=== PATIENT | female | born 1950 | race Caucasian/White ===

== ENCOUNTER 2021-02-24 14:06 | Outpatient (REF) | payer MEDICARE, SELFPAY ==
--- NOTE | ~2021-02-24 | XR_ITS ---
EXAMINATION: XR CHEST CLINICAL INFORMATION: Shortness of breath. COMPARISON: None TECHNIQUE: 2 views of the chest were obtained. FINDINGS: The lungs are well-expanded and clear. The heart size and pulmonary vascularity is normal. No gross bony abnormality seen. XR/XR chest 2V IMPRESSION: Unremarkable chest exam.
== END 2021-02-24 14:07 | disposition home or self-care (01) ==
LOC: HO.HMGCX 14:06
PROVIDERS: PCP Pediatrics; Visit Provider Hospitalist
DX: R06.02 Shortness of breath (principal)
CPT/HCPCS: 71046

== ENCOUNTER → 2021-11-12 08:54 | Outpatient (BNVA) | payer MEDICARE, SELFPAY | PROVIDERS: PCP Pediatrics; Visit Provider Internal Medicine Rheumatology | DX: M35.4 Diffuse (eosinophilic) fasciitis (principal); D72.18 Eosinophilia in diseases classified elsewhere; Z85.118 Personal history of other malignant neoplasm of bronchus and lung; Z79.899 Other long term (current) drug therapy | CPT/HCPCS: 99212 ==

== ENCOUNTER 2022-03-11 12:44 | Outpatient (REF) | payer MEDICARE, SELFPAY ==
[2022-03-11 13:46] LABS: MANUAL DIFF FLAG NO
[2022-03-11 13:52] LABS: Basophils Percent Auto 0.8 % (0-2); Eosinophils Absolute Auto 0.1 X10*3/uL (0.0-0.4); Eosinophils Percent Auto 2.1 % (0-4); Hematocrit 38.4 % (37.0-47.0); Hemoglobin 12.9 g/dl (12.0-16.0); Imm Gran Abs Auto 0.03 X10*3/uL (0.00-0.03); Imm Gran Pct Auto 0.6 % (0.0-0.4); Lymphocytes Absolute Auto 1.3 X10*3/uL (1.2-4.9); Lymphocytes Percent Auto 23.9 % (20-40); Mean Corpuscular HGB Conc 33.6 g/dl (31.0-35.0); Mean Corpuscular Hemoglobin 28.6 pg (27.0-33.0); Mean Corpuscular Volume 85.1 fL (80.0-98.0); Mean Platelet Volume 8.5 fL (9.4-12.3); Monocytes Absolute Auto 0.4 X10*3/uL (0.1-1.2); Monocytes Percent Auto 7.9 % (2-11); Neutrophils Absolute Auto 3.5 x10*3/uL (2.0-8.3); Neutrophils Percent Auto 64.7 % (45-73); Platelet Count 188 X10*3/uL (160-400); Red Blood Count 4.51 X10*6/uL (4.20-5.50); Red Cell Distribution Width 13.3 % (11.0-16.0); White Blood Count 5.3 X10*3/uL (4.8-10.8)
[2022-03-11 14:22] LABS: C Reactive Protein 0.11 mg/dL (< or = 0.50)
[2022-03-11 14:51] LABS: Erythrocyte Sedimentation Rate 7 MM/HR (0-20)
== END 2022-03-11 12:45 | disposition home or self-care (01) ==
LOC: HO.HMGCLDS 12:44
PROVIDERS: Visit Provider Internal Medicine Rheumatology
DX: M35.4 Diffuse (eosinophilic) fasciitis (principal); D72.18 Eosinophilia in diseases classified elsewhere; Z79.899 Other long term (current) drug therapy
CPT/HCPCS: 36415; 85025; 85652; 86140

== ENCOUNTER → 2022-03-16 08:42 | Outpatient (BNVA) | payer MEDICARE, SELFPAY | PROVIDERS: PCP Pediatrics; Visit Provider Internal Medicine Rheumatology | DX: M35.4 Diffuse (eosinophilic) fasciitis (principal); D72.18 Eosinophilia in diseases classified elsewhere; G62.9 Polyneuropathy, unspecified; Z79.899 Other long term (current) drug therapy | CPT/HCPCS: 99212 ==

== ENCOUNTER 2022-04-08 09:13 | Outpatient (REF) | payer MEDICARE, SELFPAY ==
--- NOTE | ~2022-04-08 | XR_ITS ---
EXAMINATION: XR RIBS, BILATERAL CLINICAL INFORMATION: Unspecified fall now with pain bilateral COMPARISON: None TECHNIQUE: 3 views of the bilateral ribs were obtained. FINDINGS: There is atelectasis at the left lung base. Lungs otherwise are clear. There is no pneumothorax thorax. A marker is placed over the inferior lateral right ribs. No underlying fracture. Visualized right and left ribs are intact. XR/XR ribs BI min 4V w CXR1V IMPRESSION: No acute osseous abnormality. IMPRESSION: Unremarkable examination.
== END 2022-04-08 09:14 | disposition home or self-care (01) ==
LOC: HO.HMGCX 09:13
PROVIDERS: Visit Provider Physician Assistant
DX: R07.89 Other chest pain (principal); Z91.81 History of falling
CPT/HCPCS: 71111

== ENCOUNTER 2022-05-02 07:15 | Emergency (ER) | payer MEDICARE, SELFPAY ==
--- NOTE | ~2022-05-02 | CT_ITS ---
EXAMINATION: CT HEAD WITHOUT CONTRAST CLINICAL INFORMATION: New onset headache. History of lung cancer. COMPARISON: None TECHNIQUE: Contiguous axial imaging was performed from the skull base to vertex without intravenous administration of contrast. This CT examination was performed using dose optimization techniques as appropriate, variously including the following: *Automated exposure control *Adjustment of mA and/or kV according to patient size (this includes techniques or standardized protocols for targeted exams where dose is matched to indication/reason for exam; i.e. extremities or head) *Use of iterative reconstruction technique DLP: 622 mGy-cm FINDINGS: There is no evidence of acute intracranial hemorrhage or territorial infarction. No abnormal mass effect or midline shift is appreciated. Wallace-white differentiation is well preserved. No extra-axial fluid collections. The ventricular system and cortical sulci are mildly prominent, consistent with age-appropriate volume loss. There are subtle areas of low density in the periventricular and subcortical white matter, most consistent with sequelae of microvascular ischemic change. Mild basal ganglia calcifications. The osseous structures and soft tissues are normal. There are calcifications of the cavernous internal carotid arteries. The visualized paranasal sinuses and mastoid air cells are well aerated. CT/CT head/brain wo con IMPRESSION: Chronic microvascular ischemic changes with no CT evidence of acute intracranial abnormality. IMPRESSION: No acute intracranial pathology.
[2022-05-02 07:49] VITALS: BP 130/70; PULSE 81; RESP 20; TEMP 36; O2SAT 98; BMI 25.4
--- NOTE | 2022-05-02 09:24 | ED_ITS ---
HPI - General Adult General Chief complaint: General Medical Stated complaint: Headache Time Seen by Provider: 05/02/22 09:06 Source: patient Mode of arrival: ambulatory Limitations: no limitations History of Present Illness HPI narrative: Patient presents to the emergency department for evaluation of head pain. She states last night while sitting and watching television she developed a sharp pain to the right side of her head. Is intermittent, lasting sometimes a few seconds and then self resolving. She does additionally report tinnitus as a chronic issue since her 20s but she does feel that over the past few months it has been worse. Denies any vision changes. Denies any head injury. Denies associated dizziness or lightheadedness, or nausea/vomiting. No neck pain or neck stiffness. She does have a history of adenocarcinoma of the lung, stating she has been in remission since 2017. Denies any anticoagulants. She does additionally report intermittent shortness of breath with deep breathing after a fall about 4 weeks ago, she was evaluated and had imaging at that time and states that she was advised her pain is due to injury of the chest wall. She also has a resolving hematoma and bruising to the right lower leg from this fall, no redness, warmth, numbness, tingling, or swelling. Related Data Home Medications Medication Instructions Recorded Confirmed sertraline 50 mg tablet 50 mg PO DAILY 02/24/21 03/16/22 simvastatin 10 mg tablet 10 mg PO BEDTIME 02/24/21 03/16/22 clonazepam 0.5 mg tablet 0.5 mg PO TID PRN anxiety 11/12/21 03/16/22 pantoprazole 40 mg tablet,delayed 40 mg PO BID 11/12/21 03/16/22 release Previous Rx's Medication Instructions Recorded gabapentin 400 mg capsule 400 mg PO BEDTIME #30 caps 03/16/22 lidocaine 4 % topical patch 1 patch topical DAILY PRN pain #15 04/08/22 (AsperFlex (lidocaine)) ea acetaminophen 300 mg-codeine 15 mg 1 tab PO BID PRN pain #10 tabs 04/13/22 tablet Allergies Allergy/AdvReac Type Severity Reaction Status Date / Time morphine [MORPHINE] Allergy Unknown HIVES, rash Unverified 04/13/22 10:10 From MINOCIN Allergy Unknown DIARRHEA Uncoded 04/13/22 10:10 Review of Systems Review of Systems: Constitutional: No weight loss. No fever. No chills. No weakness. No fatigue. Eye: No swelling. No redness. ENT: No sore throat. No rhinorrhea. No nasal congestion. No difficulty swallowing. Skin: No rash. No itching. Cardiovascular: No chest pain. No chest pressure. No palpitations. No pedal edema. Respiratory: Positive intermittent shortness of breath. Positive chronic coug h. No sputum production. Gastrointestinal: No anorexia. No nausea. No vomiting. No diarrhea. No abdominal pain. No blood in stool. Genitourinary: No burning micturition. No urinary frequency. No incontinence. Neurologic: Positive headache. No dizziness. No pre-syncope/ syncope. No unilateral weakness. No ataxia. No numbness. No tingling. No change in bowel or bladder control. Musculoskeletal: No muscle pain. No back pain. No joint pain. No stiffness. Hematologic: No bleeding. No bruising. Lymphatics: No enlarged lymph nodes. Psychiatric:No depression. No anxiety. Endocrine: No polyuria. No polydipsia. Yes all other systems are reviewed and are negative PMFSH Past Medical History Attestation statement: The following information was validated with the patient. Source: old records reviewed Medical History Eosinophilic fasciitis History of adenocarcinoma of lung Hyperlipidemia Irritable bowel syndrome Long-term use of immunosuppressant medication Osteopenia Social History Social History Household Members: Spouse Housing: [facility] Are you a primary mall plant caretaker to a significant other at home: No Do you presently have visiting nurse or other home services: No Alcohol intake: never Patient Tobacco Use Status: Former Tobacco user Years Smoked: quit 2006 e-Cigarette/Vaping Use: Never Used Advance Directives: Yes Advance Directives Information Provided: Yes Advance Directives on File: No service: No Current occupational status: retired Physical Exam ED Vital Signs: Vital Signs - 24 hr 05/02/22 07:49 Temperature 96.8 F Pulse Rate 81 Respiratory Rate 20 Blood Pressure 130/70 Pulse Oximetry 98 Oxygen Delivery Method Room Air BMI result Body Mass Index 25.4 Vital signs have been reviewed as normal and appeared to be correct. Blood pressure normal.? Heart rate normal.? Respiration rate normal. Temperature normal.? Oxygen saturation normal. Appearance: Alert.?Oriented to person, place and time. No acute distress.?Normal affect. Eyes: Pupils equal, round and reactive to light.? EOMI. No nystagmus. ENT: Pharynx normal.??TM normal bilaterally Neck: Normal inspection.? Neck supple.?? CVS: Heart sounds normal. Normal heart rate and rhythm.? Pulses normal.?? Respiratory: No respiratory distress.? Lung sounds clear to auscultation bilaterally?? Abdomen: Soft and non-tender. Normoactive bowel sounds. No pulsatile mass.?? Skin: Skin warm and dry.? Normal skin color.? Extremities: No lower extremity edema.? No calf ttp? Neuro: Moves all extremities spontaneously. Sensation intact bilaterally. CN II- XII intact. No focal neuro deficits. Ambulates with normal steady gait. NIH Stroke Scale Time: 09:15 Level of Consciousness: Alert Level of Consciousness Questions: Answers both questions correctly Level of Consciousness Commands: Performs both tasks correctly Best Gaze: Normal Visual: No visual loss Facial Palsy: Normal Motor Arm (Right): No drift Motor Arm (Left): No drift Motor Leg (Right): No drift Motor Leg (Left): No drift Limb Ataxia: Absent Sensory: Normal Best Language: No aphasia Dysarthia: Normal Extinction and Inattention: No abnormality Score: 0 Course Course Course Narrative: Patient is a 71-year-old female with a past medical history of peripheral neuropathy, GERD, IBS, adenocarcinoma the lung with remission since 2017, long-term immunosuppressant, eosinophilic fasciitis who presents emergency department today for evaluation of sudden onset right parietal head pain. No prior history of headaches. No red flag symptoms. However, given her age, history of cancer, and no significant prior headache history will obtain CT of t he head to exclude ICH/SAH/mass/intracranial pathology as a source for the pain in addition to basic labs, at this time denies the presence of pain, therefore will not administer medications currently. She did take Tylenol yesterday evening with some relief. Reevaluation(s) Reevaluation #1: CBC and CMP are overall unremarkable. CT of the head shows chronic microvascular ischemic changes but no acute intracranial abnormalities. Discussed these findings with patient. Advised Tylenol as needed for headache. Reviewed worrisome signs and symptoms to return back to the emergency department for. Advised outpatient follow-up with her primary care provider as needed. Patient verbalized understanding, was discharged home in stable condition from the emergency department, she was able to ambulate with steady gait. Time: 10:33 Medical Decision Making Medical Records Medical records reviewed: Yes I reviewed the patient's medical records. Lab Data Lab results reviewed: Yes I reviewed the patient's lab results. Result diagrams: 05/02/22 10:01 05/02/22 10:01 Labs: Lab Results 05/02/22 05/02/22 Range/Units 10: 10:01 WBC 5.3 (4.8-10.8) X10*3/uL RBC 4.71 (4.20-5.50) X10*6/uL Hgb 13.4 (12.0-16.0) g/dl Hct 39.0 (37.0-47.0) % MCV 82.8 (80.0-98.0) fL MCH 28.5 (27.0-33.0) pg MCHC 34.4 (31.0-35.0) g/dl RDW 13.0 (11.0-16.0) % Plt Count 158 L (160-400) X10*3/uL MPV 7.7 L (9.4-12.3) fL Immature Gran % (Auto) 0.6 H (0.0-0.4) % Neut % (Auto) 68.6 (45-73) % Lymph % (Auto) 22.0 (20-40) % Hickman % (Auto) 6.4 (2-11) % Eos % (Auto) 1.5 (0-4) % Baso % (Auto) 0.9 (0-2) % Lymph # (Auto) 1.2 (1.2-4.9) X10*3/uL Hickman # (Auto) 0.3 (0.1-1.2) X10*3/uL Eos # (Auto) 0.1 (0.0-0.4) X10*3/uL Baso # (Auto) 0.1 (0.0-0.2) X10*3/uL Abs Immat Gran (auto) 0.03 (0.00-0.03) X10*3/uL Absolute Neuts (auto) 3.6 (2.0-8.3) x10*3/uL Absolute Nucleated RBC 0.000 (0.0-0.012) X10*3/uL Nucleated RBC % (auto) 0.0 (0.0-0.2) /100WBC Sodium 143 (135-145) mmol/L Potassium 4.9 (3.3-5.1) mmol/L Chloride 107 (96-108) mmol/L Carbon Dioxide 27 (22-29) mmol/L Anion Gap 14 (12-20) BUN 22 H (9-16) mg/dL Creatinine 0.81 (0.5-1.4) mg/dL Estim Creat Clear Calc 63.2 Estimated GFR > 60 Random Glucose 104 (60-115) mg/dL Calcium 9.5 (8.4-10.2) mg/dL Magnesium 2.1 (1.6-2.6) mg/dL Total Bilirubin 1.1 H (0.0-1.0) mg/dL AST 21 (5-31) U/L ALT 16 (0-31) U/L Alkaline Phosphatase 67 (39-117) U/L Total Protein 6.8 (6.5-8.0) g/dL Albumin 4.5 (3.5-5.0) g/dL Imaging Data CT scan - head: Radiologist's impression: CT/CT head/brain wo con IMPRESSION: Chronic microvascular ischemic changes with no CT evidence of acute intracranial abnormality. ? ? IMPRESSION: No acute intracranial pathology. Discharge Plan Discharge Clinical Impression: Headache Patient Disposition: Home, Self-Care Instructions: General Headache (ED) Additional Instructions: As we discussed your blood work was overall normal, and the CT of your head was normal. Use Tylenol as needed for headache. Please contact your primary care provider to arrange for follow-up. Return to the emergency department any new or worsening symptoms or concerns Prescriptions: No Action simvastatin 10 mg tablet 10 mg PO BEDTIME sertraline 50 mg tablet 50 mg PO DAILY lidocaine [AsperFlex (lidocaine)] 4 % adhesive patch,medicated 1 patch topical DAILY PRN (Reason: pain) Qty: 15 0RF acetaminophen-codeine 300-15 mg tablet 1 tab PO BID PRN (Reason: pain) Qty: 10 0RF gabapentin 400 mg capsule 400 mg PO BEDTIME Qty: 30 3RF pantoprazole 40 mg tablet,delayed release (DR/EC) 40 mg PO BID clonazepam 0.5 mg tablet 0.5 mg PO TID PRN (Reason: anxiety) Interventions: ED Discharge Assessment Last Done: 05/02/22 10:58 Discharge Date/Time: 05/02/22 11:04
[2022-05-02 10:05] LABS: MANUAL DIFF FLAG NO
[2022-05-02 10:06] LABS: Basophils Absolute Auto 0.1 X10*3/uL (0.0-0.2); Basophils Percent Auto 0.9 % (0-2); Eosinophils Absolute Auto 0.1 X10*3/uL (0.0-0.4); Eosinophils Percent Auto 1.5 % (0-4); Hemoglobin 13.4 g/dl (12.0-16.0); Imm Gran Abs Auto 0.03 X10*3/uL (0.00-0.03); Imm Gran Pct Auto 0.6 % (0.0-0.4); Lymphocytes Absolute Auto 1.2 X10*3/uL (1.2-4.9); Mean Corpuscular HGB Conc 34.4 g/dl (31.0-35.0); Mean Corpuscular Hemoglobin 28.5 pg (27.0-33.0); Mean Corpuscular Volume 82.8 fL (80.0-98.0); Mean Platelet Volume 7.7 fL (9.4-12.3); Monocytes Absolute Auto 0.3 X10*3/uL (0.1-1.2); Monocytes Percent Auto 6.4 % (2-11); Neutrophils Absolute Auto 3.6 x10*3/uL (2.0-8.3); Neutrophils Percent Auto 68.6 % (45-73); Platelet Count 158 X10*3/uL (160-400); Red Blood Count 4.71 X10*6/uL (4.20-5.50); White Blood Count 5.3 X10*3/uL (4.8-10.8)
[2022-05-02 10:24] LABS: Alanine Aminotransferase 16 U/L (0-31); Albumin Level 4.5 g/dL (3.5-5.0); Alkaline Phosphatase 67 U/L (39-117); Anion Gap 14 (12-20); Aspartate Amino Transferase 21 U/L (5-31); Bilirubin Total 1.1 mg/dL (0.0-1.0); Blood Urea Nitrogen 22 mg/dL (9-16); Calcium 9.5 mg/dL (8.4-10.2); Carbon Dioxide 27 mmol/L (22-29); Chloride 107 mmol/L (96-108); Creatinine Clr Calc Pharmacy 63.2; Estimated Glomerular Filt Rate > 60; Glucose Random 104 mg/dL (60-115); Magnesium 2.1 mg/dL (1.6-2.6); Potassium 4.9 mmol/L (3.3-5.1); Sodium 143 mmol/L (135-145); Total Protein 6.8 g/dL (6.5-8.0)
== END 2022-05-02 11:04 | disposition home or self-care (01) ==
PROVIDERS: Nurse Practitioner Family; Emergency Provider Emergency Medicine; PCP Pediatrics
DX: R51.9 Headache, unspecified (principal)
CPT/HCPCS: 36415; 70450; 80053; 83735; 85025; 99283; 99284

== ENCOUNTER 2022-05-09 13:06 | Outpatient (REF) | payer MEDICARE, SELFPAY ==
--- NOTE | ~2022-05-09 | XR_ITS ---
EXAMINATION: XR TIBIA AND FIBULA, RIGHT CLINICAL INFORMATION: Right lower leg contusion. COMPARISON: None TECHNIQUE: AP and lateral views of the right tibia and fibula were obtained. FINDINGS: The bones and soft tissues are normal. No fracture. No osseous lesions. XR/XR tibia fibula RT 2V IMPRESSION: Unremarkable right tibia and fibula.
== END 2022-05-09 13:07 | disposition home or self-care (01) ==
LOC: HO.HMGCX 13:06
PROVIDERS: PCP Pediatrics; Visit Provider Nurse Practitioner Acute Care
DX: S80.11XA Contusion of right lower leg, initial encounter (principal); X58.XXXA Exposure to other specified factors, initial encounter; Y93.9 Activity, unspecified; Y92.9 Unspecified place or not applicable; Y99.9 Unspecified external cause status
CPT/HCPCS: 73590

== ENCOUNTER 2022-06-17 11:09 | Outpatient (REF) | payer MEDICARE, SELFPAY ==
[2022-06-17 13:51] LABS: MANUAL DIFF FLAG NO
[2022-06-17 14:20] LABS: Basophils Absolute Auto 0.1 X10*3/uL (0.0-0.2); Eosinophils Absolute Auto 0.1 X10*3/uL (0.0-0.4); Eosinophils Percent Auto 1.9 % (0-4); Hemoglobin 12.7 g/dl (12.0-16.0); Imm Gran Abs Auto 0.03 X10*3/uL (0.00-0.03); Imm Gran Pct Auto 0.6 % (0.0-0.4); Lymphocytes Absolute Auto 1.5 X10*3/uL (1.2-4.9); Lymphocytes Percent Auto 30.5 % (20-40); Mean Corpuscular HGB Conc 34.3 g/dl (31.0-35.0); Mean Corpuscular Hemoglobin 28.9 pg (27.0-33.0); Mean Corpuscular Volume 84.1 fL (80.0-98.0); Mean Platelet Volume 8.6 fL (9.4-12.3); Monocytes Absolute Auto 0.4 X10*3/uL (0.1-1.2); Neutrophils Absolute Auto 2.7 x10*3/uL (2.0-8.3); Platelet Count 175 X10*3/uL (160-400); Red Cell Distribution Width 12.8 % (11.0-16.0); White Blood Count 4.8 X10*3/uL (4.8-10.8)
[2022-06-17 14:54] LABS: C Reactive Protein 0.22 mg/dL (< or = 0.50)
[2022-06-17 15:00] LABS: Erythrocyte Sedimentation Rate 7 MM/HR (0-20)
== END 2022-06-17 11:10 | disposition home or self-care (01) ==
LOC: HO.10HDL 11:09
PROVIDERS: Visit Provider Internal Medicine Rheumatology
DX: M35.4 Diffuse (eosinophilic) fasciitis (principal); D72.18 Eosinophilia in diseases classified elsewhere; Z85.118 Personal history of other malignant neoplasm of bronchus and lung; Z79.899 Other long term (current) drug therapy
CPT/HCPCS: 36415; 85025; 85652; 86140; 99212

== ENCOUNTER → 2022-10-19 09:33 | Outpatient (BNVA) | payer MEDICARE, SELFPAY | PROVIDERS: PCP Pediatrics; Visit Provider Internal Medicine Rheumatology | DX: M35.4 Diffuse (eosinophilic) fasciitis (principal); D72.18 Eosinophilia in diseases classified elsewhere; Z85.118 Personal history of other malignant neoplasm of bronchus and lung | CPT/HCPCS: 36415; 85025; 85652; 86140; 99212 ==

== ENCOUNTER 2022-10-19 10:23 | Outpatient (REF) | payer MEDICARE, SELFPAY ==
[2022-10-19 13:22] LABS: MANUAL DIFF FLAG NO
[2022-10-19 13:28] LABS: Basophils Percent Auto 0.9 % (0-2); Eosinophils Absolute Auto 0.1 X10*3/uL (0.0-0.4); Eosinophils Percent Auto 2.6 % (0-4); Hematocrit 36.8 % (37.0-47.0); Hemoglobin 12.6 g/dl (12.0-16.0); Imm Gran Abs Auto 0.04 X10*3/uL (0.00-0.03); Imm Gran Pct Auto 0.9 % (0.0-0.4); Lymphocytes Absolute Auto 1.2 X10*3/uL (1.2-4.9); Mean Corpuscular HGB Conc 34.2 g/dl (31.0-35.0); Mean Corpuscular Hemoglobin 28.6 pg (27.0-33.0); Mean Corpuscular Volume 83.6 fL (80.0-98.0); Mean Platelet Volume 8.6 fL (9.4-12.3); Monocytes Absolute Auto 0.3 X10*3/uL (0.1-1.2); Monocytes Percent Auto 7.9 % (2-11); Neutrophils Absolute Auto 2.5 x10*3/uL (2.0-8.3); Neutrophils Percent Auto 58.7 % (45-73); Platelet Count 169 X10*3/uL (160-400); White Blood Count 4.3 X10*3/uL (4.8-10.8)
[2022-10-19 13:38] LABS: C Reactive Protein 0.37 mg/dL (< or = 0.50)
[2022-10-19 14:04] LABS: Erythrocyte Sedimentation Rate 8 MM/HR (0-20)
== END 2022-10-19 10:24 | disposition home or self-care (01) ==
LOC: HO.10HDL 10:23
PROVIDERS: Visit Provider Internal Medicine Rheumatology
DX: Z13.89 Encounter for screening for other disorder (principal)
CPT/HCPCS: 36415; 85025; 85652; 86140

== ENCOUNTER 2023-04-13 09:28 | Outpatient (AMB) | payer MEDICARE, SELFPAY ==
--- NOTE | 2023-04-13 09:31 | AM.OFFWIN_ITS ---
Intake Vital Signs 04/13/23 09:37 BP 140/80 H Blood Pressure Location Lt brachial Position Sitting Pulse 88 Pulse Source Pulse Oximeter Temp 97.5 F Temp Source Temporal Artery Scan Pulse Oximetry (%) 98 Oxygen Delivery Method Room Air Intake Visit Reasons: EP, Pain on top of head Intake Note: Patient here because she has had a headache/pain right above hair line that has been present since wednesday, she states it feels like she was hit on the head. no injuries, no redness, no bumps. Patient Tobacco Use Status: Former Tobacco user Allergies morphine [MORPHINE] Allergy (Unknown, Unverified 04/13/23 09:36) HIVES, rash From MINOCIN Allergy (Unknown, Uncoded 04/13/23 09:36) DIARRHEA Do you need a note to return to daycare/school/sports/work: No HPI HPI Comments History of Present Illness Details 72-year-old female with past medical history of eosinophilic fasciitis, history of cancer, no longer on a immuno therapeutics, presents with headache that started at the top of her head that worsens with palpation. She does not report any rashes, changes in vision, or loss of balance. She was advised by her primary care to present to a hospital or urgent care for evaluation. [facility] Medical History Eosinophilic fasciitis History of adenocarcinoma of lung Hyperlipidemia Irritable bowel syndrome Long-term use of immunosuppressant medication Osteopenia Surgical History H/O: hysterectomy Hx of tonsillectomy Social History Household Members: Spouse Housing: Condominium Are you a primary anesthesiologist and critical care to a significant other at home: No Do you presently have visiting nurse or other home services: No Alcohol intake: never Patient Tobacco Use Status: Former Tobacco user Years Smoked: quit 2006 e-Cigarette/Vaping Use: Never Used service: No Current occupational status: retired Review of Systems Const Details: Constitutional: No Fever, No Chills positive frontal headache Cardiovascular: No Chest Pain, No SOB Respiratory: No Cough, No Dyspnea Gastrointestinal: No Nausea, No Vomiting, No Diarrhea, No abdominal Pain Genitourinary: No Dysuria, No Hematuria Musculoskeletal: No joint pain, No Myalgias, No Joint Swelling Skin: No Skin lacerations, No rash Neuro: No Weakness, No Numbness, No Paresthesias, No Loss of Consciousness, No Dizziness, positive frontal headache All systems reviewed & are unremarkable except as noted in HPI and below Physical Exam Vital Signs: Last Vital Signs Temp 97.5 F 04/13/23 09:37 Pulse 88 04/13/23 09:37 BP 140/80 H 04/13/23 09:37 Pulse Ox 98 04/13/23 09:37 Oxygen Delivery Method Room Air 04/13/23 09:37 Appearance: Alert. Oriented X3. No acute distress. Eyes: Pupils equal, round and reactive to light. ENT: Pharynx normal. Neck: Normal inspection. Neck supple. CVS: Normal heart rate and rhythm. Pulses normal. Respiratory: No respiratory distress. Breath sounds normal. Skin: Skin warm and dry. Normal skin color. Normal skin turgor. Extremities: No lower extremity edema. Gait well balanced well coordinated. Neuro: No motor deficit. No sensory deficit. Cranial nerves 2-12 intact Assessment & Plan Assessment & Plan (1) Eosinophilic fasciitis: Comment: Onset 05/24. Initial presentation with PMR picture. Probably due to nivolumab(a checkpoint inhibitor) Fasciitis seen on MRI 06/23 High dose prednisone 06/23 Mycophenolate added 07/24 - stopped in 09/24 due to diarrhea Myfortic in place of CellCept 09/24 Prednisone slowly tapered off: September: Mycophenolate was tapered and stopped Code(s): M35.4 - Diffuse (eosinophilic) fasciitis; D72.18 - Eosinophilia in diseases classified elsewhere (2) History of adenocarcinoma of lung: Comment: Diagnosed on lung biopsy. Treated initially with carboplatin, Taxol, Avastin for 4 cycles Alimta X 5 months Optivo for 19 months -stopped due to eosinophilia/PMR - eventually eosinophilic fasciitis Code(s): Z85.118 - Personal history of other malignant neoplasm of bronchus and lung (3) Headache: Code(s): R51.9 - Headache, unspecified Plan 72-year-old female with past medical history of eosinophilic fasciitis, history of lung cancer no longer on immunotherapy or chemotherapy, hyperlipidemia, and peripheral neuropathy presents with a headache that started on the top of her head on Wednesday. She states this pain is pretty severe, and is not associated with loss of balance, cauda equina, changes in vision, dizziness, light headedness, or weakness. She does report tinnitus which she has had for quite some time, and states the pain on her head gets worse with pressure. She did not have any open wounds or rashes, low likelihood of zoster or trigeminal neuralgia at this time. Considering patient's significant past medical history of malignancy as well as eosinophilic fasciitis, I feel that this patient should require CT scan of the head as this could possibly be metastatic disease or exacerbation of eosinophilia. Patient's Pearson coma Scale is 15, NIH stroke scale is 0. Cranial nerves 2-12 intact. Gait is well balanced well coordinated. Brisk capillary refill, equal pulses bilaterally. Patient does have an appointment with Dr. Vivas and Rheumatology at [facility] on Wednesday. I did call their office to let them know that I was concerned about this patient, I discussed my plan for outpatient CT scan of the head, and they have agreed to follow-up. Patient does understand that she must follow-up with her primary care physician and or Rheumatology for her CT scan results. I did discuss of prednisone burst therapy with this patient, she does not want that medication. She will continue using Tylenol and Motrin to help alleviate her symptoms. She will also discuss her symptoms with her malt house loader on Wednesday. Patient verbalized understanding of and agreed to plan of care discharge home. Verbalized understanding of signs and symptoms indicating need for emergent intervention. Orders: Orders CT head/brain wo IV con Today D72.18 - Eosinophilia in diseases classified elsewhere, M35.4 - Diffuse (eosinophilic) fasciitis, R51.9 - Headache, unspecified, Z85.118 - Personal history of other malignant neoplasm of bronchus and lung Patient Instructions: You were evaluated for sudden onset of severe headaches without neurological findings. Considering your significant past medical history of eosinophilic fasciitis and history of cancer, please present to [facility] for a CT scan of the head as an outpatient. I discussed this plan with Dr. Vivass office, they will follow up on your CT scan results with you on Wednesday. Alternate Tylenol 650 mg every 6 hours and Motrin 600 mg every 6 hours as needed for pain management. Consider taking these medications 3 hours apart so you have pain and fever management every 3 hours. Write down what time you take these medications to prevent accidental overdose. Motrin is the same medication as Advil and ibuprofen. Tylenol is the same medication as acetaminophen. Thank you for choosing this urgent care for evaluation. Please follow-up with primary care physician as needed. Return to the emergency department for any new, concerning, or worsening symptoms. Coding Level of Care Code Est Pt Level 3 (79348) Diagnoses Eosinophilic fasciitis M35.4; D72.18 History of adenocarcinoma of lung Z85.118 Headache R51.9
[2023-04-13 09:37] VITALS: BP 140/80; PULSE 88; TEMP 36.4; O2SAT 98
== END 2023-04-13 11:37 | disposition home or self-care (01) ==
PROVIDERS: PCP Pediatrics; Visit Provider Nurse Practitioner Family
DX: M35.4 Diffuse (eosinophilic) fasciitis (principal); D72.18 Eosinophilia in diseases classified elsewhere; Z85.118 Personal history of other malignant neoplasm of bronchus and lung; R51.9 Headache, unspecified
CPT/HCPCS: 99213

== ENCOUNTER 2023-04-13 13:50 | Outpatient (REF) | payer MEDICARE, SELFPAY ==
--- NOTE | ~2023-04-13 | CT_ITS ---
EXAMINATION: CT HEAD WITHOUT CONTRAST CLINICAL INFORMATION: Headache COMPARISON: 05/02/[address] TECHNIQUE: Contiguous axial imaging was performed from the skull base to vertex without intravenous administration of contrast. This CT examination was performed using dose optimization techniques as appropriate, variously including the following: *Automated exposure control *Adjustment of mA and/or kV according to patient size (this includes techniques or standardized protocols for targeted exams where dose is matched to indication/reason for exam; i.e. extremities or head) *Use of iterative reconstruction technique DLP: 708.00 mGy-cm FINDINGS: CT examination shows the ventricles and sulci are normal in size and configuration for age. Wallace-white differentiation is maintained. No acute hemorrhage, mass effect or shift is evident. In the posterior fossa the brainstem, cerebellum and fourth ventricle are unremarkable. The orbits, calvarium, paranasal sinuses and mastoid air cells are unremarkable. CT/CT head/brain wo IV con IMPRESSION: No acute intracranial pathology.
== END 2023-04-13 13:51 | disposition home or self-care (01) ==
LOC: HO.CT 13:50
PROVIDERS: PCP Pediatrics; Visit Provider Nurse Practitioner Family
DX: R51.9 Headache, unspecified (principal); M35.4 Diffuse (eosinophilic) fasciitis; D72.18 Eosinophilia in diseases classified elsewhere; Z85.118 Personal history of other malignant neoplasm of bronchus and lung
CPT/HCPCS: 70450

== ENCOUNTER 2023-04-19 09:52 | Outpatient (AMB) | payer MEDICARE, SELFPAY ==
--- NOTE | 2023-04-19 09:54 | A.OFFVIS_ITS ---
Intake Vital Signs 04/19/23 10:01 Height 5 ft 5 in Weight 151 lb 10.848 oz BMI 25.2 BP 122/64 Blood Pressure Location Lt brachial Position Sitting Pulse 97 Pulse Source Pulse Oximeter Temp 96.5 F L Temp Source Skin Pulse Oximetry (%) 96 Intake Visit Reasons: eosin fasciitis Intake Note: * Pt seen today for eosin fasciitis follow up. 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 She has been off all immunosuppressive medications for about a year now. She gets some discomfort; it sounds more like at nighttime there is burning in the feet attributed to neuropathy. She does take some gabapentin for that. Amitriptyline was added and that has been helpful as well. The amitriptyline was added because of continued symptoms of bloating, heartburn, and occasional loose stool. She has not had any recent respiratory symptoms. She did develop a headache over the top of the skull last week. She was evaluated in urgent care and a CT of the head was done which was normal. They were concerned of course by possible metastatic disease to her brain. She remains on the amitriptyline and pantoprazole for the stomach symptoms. She d enies any side effects or sedation with the current medications. [facility] Medical History Eosinophilic fasciitis History of adenocarcinoma of lung Hyperlipidemia Irritable bowel syndrome Long-term use of immunosuppressant medication Osteopenia Surgical History H/O: hysterectomy Hx of tonsillectomy Social History Household Members: Spouse Housing: [facility] Are you a primary health care sanitary technician to a significant other at home: No Do you presently have visiting nurse or other home services: No Alcohol intake: current Alcohol intake frequency: a few times a month Alcohol type: wine Patient Tobacco Use Status: Former Tobacco user Years Smoked: quit 2006 e-Cigarette/Vaping Use: Never Used service: No Current occupational status: retired Review of Systems Const Details: Negative for appetite change, weight change, fever, chills, malaise and fatigue Eyes Details: Episode of headache as noted above. Negative for vision change, dry eyes and dizziness ENT Details: Negative for hearing change, tinnitus, oral ulcer, nose bleeds and oral dryness. Card Details: Negative chest pain, edema and syncope Resp Details: Negative for SOB, cough and wheezing GI Details: Negative indigestion/heartburn, nausea, abdominal pain, bowel changes, diarrhea, constipation and bloody stool. Skin/Breast Details: Negative for itching, rash, hives, Raynaud's symptoms, sun sensitivity, and skin cancer Neuro Details: Some numbness in the feet, burning pain in the feet attributed to neuropathy. Negative for epilepsy, palsy, stroke, changes in speech and weakness Psych Details: Anxious at times worrying about return of her cancer or the eosinophilic fasciitis. Naveen/Lymph Details: Negative for excessive bruising or bleeding. Physical Exam Vital Signs: Last Vital Signs Temp 96.5 F L 04/19/23 10:01 Pulse 97 04/19/23 10:01 BP 122/64 04/19/23 10:01 Pulse Ox 96 04/19/23 10:01 BMI result Body Mass Index 25.2 APPEARANCE: Patient in no acute distress EYES no redness, pupils equal and reactive to light, eyelids normal. No temporal artery tenderness, redness or swelling. EARS: External ear normal, canal clear and tympanic membrane normal. NOSE/SINUS: Airflow through both nares, no nasal discharge, no bleeding THROAT: Oral mucosa moist, no ulcerations NECK: No thyromegaly or masses, no adenopathy, trachea midline. HEART: Regulrar rhythm, S1-S2 heard, no murmurs, rubs or gallops. LUNG: Clear to percussion and auscultation ABD: Normal bowel sounds, no organomegaly, masses or tenderness. EXTREMITIES:? No edema, no calf tenderness, normal peripheral pulses. NEURO:? Oriented and alert x3.? No focal weakness.? Reflexes symmetric.? Gait normal.? Questionable sensory loss in the feet. SKIN:? The skin on the lower back and abdomen has a few areas of dimpling but no color changes.? The skin is soft and ploiant without any sclerodermatous type changes.? There is no inflammatory or potentially neoplastic skin lesions notable. JOINT EXAM:.?? No tender or swollen joints.? There is some pain with range of motion in the lumbar spine but no discrete tenderness over the vertebral Results Reviewed Results Reviewed: [address] [address] [address] Scan Report Signed Patient: Deanna Noel MR#: [id number] : 1950 Acct:[id number] Age/Sex: 72 / F ADM Date: 04/13/23 Loc: HO.CT Attending Dr: Aminta Medina NP Ordering Physician: Aminta Medina NP Date of Service: 04/13/23 Procedure(s): CT head/brain wo IV con Accession Number(s): [id number] cc: Aminta Medina NP~ EXAMINATION: CT HEAD WITHOUT CONTRAST CLINICAL INFORMATION: Headache? COMPARISON: 05/02/[address] TECHNIQUE: Contiguous axial imaging was performed from the skull base to vertex without intravenous administration of contrast. This CT examination was performed using dose optimization techniques as appropriate, variously including the following: *Automated exposure control *Adjustment of mA and/or kV according to patient size (this includes techniques or standardized protocols for targeted exams where dose is matched to indication/reason for exam; i.e. extremities or head) *Use of iterative reconstruction technique DLP: 708.00 mGy-cm FINDINGS: CT examination shows the ventricles and sulci are normal in size and configuration for age. Wallace-white differentiation is maintained. No acute hemorrhage, mass effect or shift is evident. In the posterior fossa the brainstem, cerebellum and fourth ventricle are unremarkable. The orbits, calvarium, paranasal sinuses and mastoid air cells are unremarkable. ? CT/CT head/brain wo IV con IMPRESSION: No acute intracranial pathology. Dictated By: Jose Enrique Hansen MD Assessment & Plan Assessment & Plan (1) History of adenocarcinoma of lung: Comment: Diagnosed on lung biopsy. Treated initially with carboplatin, Taxol, Avastin for 4 cycles Alimta X 5 months Optivo for 19 months -stopped due to eosinophilia/PMR - eventually eosinophilic fasciitis Code(s): Z85.118 - Personal history of other malignant neoplasm of bronchus and lung (2) Peripheral neuropathy: Comment: ? due to chemotherapy Code(s): G62.9 - Polyneuropathy, unspecified (3) Eosinophilic fasciitis: Comment: Onset 05/24. Initial presentation with PMR picture. Probably due to nivolumab(a checkpoint inhibitor) Fasciitis seen on MRI 06/23 High dose prednisone 06/23 Mycophenolate added 07/24 - stopped in 09/24 due to diarrhea Myfortic in place of CellCept 09/24 Prednisone slowly tapered off: September: Mycophenolate was tapered and stopped Code(s): M35.4 - Diffuse (eosinophilic) fasciitis; D72.18 - Eosinophilia in diseases classified elsewhere Plan No real significant signs of active heavy of her eosinophilic fasciitis. She has been off the immunosuppressive medications for a year which is a good sign that she does not need them. The nonspecific GI symptoms continue, they seem more like irritable bowel syndrome. I think she could continue with the gabapentin as it seems to help her foot type pain at night. We will aim for follow-up at 3-4 months. Coding Level of Care Code Est Pt Level 3 (83221) Diagnoses History of adenocarcinoma of lung Z85.118 Peripheral neuropathy G62.9 Eosinophilic fasciitis M35.4; D72.18
[2023-04-19 10:01] VITALS: BP 122/64; PULSE 97; TEMP 35.8; O2SAT 96; BMI 25.2
== END 2023-04-19 10:50 | disposition home or self-care (01) ==
PROVIDERS: PCP Pediatrics; Visit Provider Internal Medicine Rheumatology
DX: Z85.118 Personal history of other malignant neoplasm of bronchus and lung (principal); G62.9 Polyneuropathy, unspecified; M35.4 Diffuse (eosinophilic) fasciitis; D72.18 Eosinophilia in diseases classified elsewhere
CPT/HCPCS: 99213

== ENCOUNTER → 2023-04-19 09:52 | Outpatient (BNVA) | payer MEDICARE, SELFPAY | PROVIDERS: Visit Provider Internal Medicine Rheumatology | DX: M35.4 Diffuse (eosinophilic) fasciitis (principal); D72.18 Eosinophilia in diseases classified elsewhere; M85.80 Other specified disorders of bone density and structure, unspecified site; G62.9 Polyneuropathy, unspecified; Z85.118 Personal history of other malignant neoplasm of bronchus and lung; Z79.60 Long term (current) use of unspecified immunomodulators and immunosuppressants | CPT/HCPCS: 36415; 85025; 85652; 86140; 99212 ==

== ENCOUNTER 2023-04-19 10:56 | Outpatient (REF) | payer MEDICARE, SELFPAY ==
[2023-04-19 11:17] LABS: MANUAL DIFF FLAG NO
[2023-04-19 11:28] LABS: Basophils Percent Auto 0.9 % (0-2); Eosinophils Absolute Auto 0.1 X10*3/uL (0.0-0.4); Eosinophils Percent Auto 1.9 % (0-4); Hematocrit 39.6 % (37.0-47.0); Hemoglobin 13.4 g/dl (12.0-16.0); Imm Gran Abs Auto 0.04 X10*3/uL (0.00-0.03); Imm Gran Pct Auto 0.9 % (0.0-0.4); Lymphocytes Absolute Auto 1.4 X10*3/uL (1.2-4.9); Lymphocytes Percent Auto 29.4 % (20-40); Mean Corpuscular HGB Conc 33.8 g/dl (31.0-35.0); Mean Corpuscular Hemoglobin 29.3 pg (27.0-33.0); Mean Corpuscular Volume 86.5 fL (80.0-98.0); Mean Platelet Volume 8.4 fL (9.4-12.3); Monocytes Absolute Auto 0.5 X10*3/uL (0.1-1.2); Monocytes Percent Auto 9.7 % (2-11); Neutrophils Absolute Auto 2.7 x10*3/uL (2.0-8.3); Neutrophils Percent Auto 57.2 % (45-73); Platelet Count 166 X10*3/uL (160-400); Red Blood Count 4.58 X10*6/uL (4.20-5.50); Red Cell Distribution Width 12.7 % (11.0-16.0); White Blood Count 4.7 X10*3/uL (4.8-10.8)
[2023-04-19 11:54] LABS: C Reactive Protein 0.14 mg/dL (< or = 0.50)
[2023-04-19 12:11] LABS: Erythrocyte Sedimentation Rate 5 MM/HR (0-20)
== END 2023-04-19 10:57 | disposition home or self-care (01) ==
LOC: HO.10HDL 10:56
PROVIDERS: Visit Provider Internal Medicine Rheumatology
DX: Z13.89 Encounter for screening for other disorder (principal)
CPT/HCPCS: 36415; 85025; 85652; 86140

== ENCOUNTER 2023-08-19 08:48 | Outpatient (AMB) | payer MEDICARE, SELFPAY ==
[2023-08-19 08:49] VITALS: BP 112/58; PULSE 91; O2SAT 99; BMI 24.6
--- NOTE | 2023-08-19 08:49 | A.OFFVIS_ITS ---
Intake Vital Signs 08/19/23 08:49 Height 5 ft 5 in Weight 147 lb 14.883 oz BMI 24.6 BP 112/58 L Blood Pressure Location Lt brachial Position Sitting Pulse 91 Pulse Source Pulse Oximeter Pulse Oximetry (%) 99 Oxygen Delivery Method Room Air Intake Visit Reasons: eos fasciitis Intake Note: Pt seen today for eosin fasciitis follow up. 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 She says the skin seems stable. She does notice some discoloration of the skin in the back. She is not having any Raynaud's symptoms. She had a scare when her CT scan earlier this fall showed some ground-glass opacities in the chest. A repeat a few months later showed they had resolved however. She is bothered mostly by lower extremity pain at night. She thinks this is due to neuropathy. She does take gabapentin 400 mg at night, sertraline 25 mg daily, and amitriptyline at bedtime. For anxiety there is a p.r.n. clonazepam that she can take. She admits that she did fall in the shower recently. She thinks it is because of the paresthesias and numbness in her feet. She did not sustain any significant injury but it was frightening to her. She has a small shower stool that she uses in the shower. She has a shower grab bar but it was pulled out of the wall when she fell. She is walking regularly. Increased time on her feet does not seem to cause the lower extremity discomfort to change any. [facility] Medical History Eosinophilic fasciitis History of adenocarcinoma of lung Hyperlipidemia Irritable bowel syndrome Long-term use of immunosuppressant medication Osteopenia Surgical History H/O: hysterectomy Hx of tonsillectomy Social History Household Members: Sp[facility] Are you a primary college and career counselor to a significant other at home: No Do you presently have visiting nurse or other home services: No 75 years or older and lives alone: No Alcohol intake: current Alcohol intake frequency: a few times a month Alcohol type: wine Patient Tobacco Use Status: Former Tobacco user Years Smoked: quit 2006 e-Cigarette/Vaping Use: Never Used service: No Current occupational status: retired Review of Systems Const Details: Negative for appetite change, weight change, fever, chills, malaise and fatigue Eyes Details: Negative for vision change, dry eyes,headaches and dizziness ENT Details: Negative for hearing change, tinnitus, oral ulcer, nose bleeds and oral dryness. Card Details: Negative chest pain, edema and syncope Resp Details: Negative for SOB, cough and wheezing GI Details: She continues with intermittent heartburn in crampy abdominal pains. These have not really changed much but continued to cause her worry. She has seen a number of gastroenterologists. She is seeing a new 1 now at [facility]. Negative , nausea, abdominal pain, bowel changes, and bloody stool. Neuro Details: Nocturnal foot pain and numbness. Negative for epilepsy, palsy, stroke, changes in speech, the and weakness Psych Details: anxiety, depression symptoms seem stable. Naveen/Lymph Details: Negative for excessive bruising or bleeding. Physical Exam Vital Signs: Last Vital Signs Pulse 91 08/19/23 08:49 BP 112/58 L 08/19/23 08:49 Pulse Ox 99 08/19/23 08:49 Oxygen Delivery Method Room Air 08/19/23 08:49 BMI result Body Mass Index 24.6 APPEARANCE: Patient in no acute distress EYES no redness, pupils equal and reactive to light, eyelids normal. No temporal artery tenderness, redness or swelling. EARS: External ear normal, canal clear and tympanic membrane normal. NOSE/SINUS: Airflow through both nares, no nasal discharge, no bleeding THROAT: Oral mucosa moist, no ulcerations NECK: No thyromegaly or masses, no adenopathy, trachea midline. HEART: Regulrar rhythm, S1-S2 heard, no murmurs, rubs or gallops. LUNG: Clear to percussion and auscultation ABD: Normal bowel sounds, no organomegaly, masses or tenderness. EXTREMITIES:? No edema, no calf tenderness, normal peripheral pulses. NEURO:? Oriented and alert x3.? No focal weakness.? Reflexes symmetric.? Gait normal.? Questionable sensory loss in the feet. SKIN:? The skin on the lower back and abdomen has a few areas of mottling. The skin is soft and pliant without any sclerodermatous type changes.? There is no inflammatory or potentially neoplastic skin lesions notable. JOINT EXAM:.?? No tender or swollen joints.? There is some pain with range of motion in the lumbar spine but no discrete tenderness over the vertebral ? Results Reviewed Results Reviewed: Laboratory Tests 04/19/23 11:04 WBC 4.7 L Hgb 13.4 ESR 5 C-Reactive Protein 0.14 Assessment & Plan Assessment & Plan (1) Peripheral neuropathy: Comment: ? due to chemotherapy Code(s): G62.9 - Polyneuropathy, unspecified (2) History of adenocarcinoma of lung: Comment: Diagnosed on lung biopsy. Treated initially with carboplatin, Taxol, Avastin for 4 cycles Alimta X 5 months Optivo for 19 months -stopped due to eosinophilia/PMR - eventually eosinophilic fasciitis Code(s): Z85.118 - Personal history of other malignant neoplasm of bronchus and lung (3) Eosinophilic fasciitis: Comment: Onset 05/24. Initial presentation with PMR picture. Probably due to nivolumab(a checkpoint inhibitor) Fasciitis seen on MRI 06/23 High dose prednisone 06/23 Mycophenolate added 07/24 - stopped in 09/24 due to diarrhea Myfortic in place of CellCept 09/24 Prednisone slowly tapered off: September: Mycophenolate was tapered and stopped Code(s): M35.4 - Diffuse (eosinophilic) fasciitis; D72.18 - Eosinophilia in diseases classified elsewhere Plan So there do not appear to be any signs of skin disease from her eosinophilic fasciitis that have recurred. She has been off the immunosuppressive treatment now for over a year. The GI symptoms continue, mostly consistent with irritable bowel syndrome. The numbness in the feet presumably is due to her chemotherapy caused neuropathy. The fall in the shower is of concern of course. I told her to measure her shower and try to see if a surgical supply store had a shower chair that would fit in the shower. She could contact us or her primary to get a prescription for the shower chair. One could consider increasing her amitriptyline and or gabapentin at night to see if that might help with her neuropathic symptoms but I am concerned that that might lead to more falling and sedation. If she really wants to try that she could talk to her primary doctor. Follow-up in 6 months seems reasonable unless she develops additional symptoms. Coding Level of Care Code Est Pt Level 3 (09851) Diagnoses Peripheral neuropathy G62.9 History of adenocarcinoma of lung Z85.118 Eosinophilic fasciitis M35.4; D72.18
== END 2023-08-19 09:45 | disposition home or self-care (01) ==
PROVIDERS: PCP Pediatrics; Visit Provider Internal Medicine Rheumatology
DX: G62.9 Polyneuropathy, unspecified (principal); Z85.118 Personal history of other malignant neoplasm of bronchus and lung; M35.4 Diffuse (eosinophilic) fasciitis; D72.18 Eosinophilia in diseases classified elsewhere
CPT/HCPCS: 99213

== ENCOUNTER → 2023-08-19 08:48 | Outpatient (BNVA) | payer MEDICARE, SELFPAY | PROVIDERS: PCP Pediatrics; Visit Provider Internal Medicine Rheumatology | DX: G62.9 Polyneuropathy, unspecified (principal); M35.4 Diffuse (eosinophilic) fasciitis; D72.18 Eosinophilia in diseases classified elsewhere; Z85.118 Personal history of other malignant neoplasm of bronchus and lung | CPT/HCPCS: 99212 ==

== ENCOUNTER 2023-10-25 10:07 | Outpatient (AMB) | payer MEDICARE, SELFPAY ==
--- NOTE | 2023-10-25 12:33 | MHC.OFFWIV ---
Intake Vital Signs 10/25/23 12:35 Height 5 ft 5 in Weight 147 lb BMI 24.5 BP 132/60 Blood Pressure Location Lt brachial Position Sitting Pulse 90 Pulse Source Pulse Oximeter Temp 98.0 F Temp Source Oral Pulse Oximetry (%) 98 Oxygen Delivery Method Room Air Intake Visit Reasons: EP Right shoulder pain ( might need x-ray) Intake Note: pt is here for c.o right shoulder pain, pt states pain happened after taking coat off Patient Tobacco Use Status: Former Tobacco user Allergies morphine [MORPHINE] Allergy (Unknown, Verified 10/25/23 12:35) HIVES, rash From MINOCIN Allergy (Unknown, Uncoded 04/19/23 10:03) DIARRHEA Do you need a note to return to daycare/school/sports/work: No HPI HPI Comments History of Present Illness Details The patient presents to urgent care for evaluation of right shoulder pain. She states that she believes she has arthritis in the right shoulder though no previous diagnosis has been made, and was putting her arm in an article of clothing and felt something in the shoulder and has had pain since. She is able to move the arm around the it elicits pain. [facility] Medical History (Updated 10/25/23 @ 12:59 by Ree Carroll DO) Arthritis Hyperlipidemia Osteopenia Irritable bowel syndrome History of adenocarcinoma of lung Long-term use of immunosuppressant medication Eosinophilic fasciitis Surgical History H/O: hysterectomy Hx of tonsillectomy Social History Household Members: Spouse Housing: Condominium Are you a primary transition of care specialist to a significant other at home: No Do you presently have visiting nurse or other home services: No Alcohol intake: current Alcohol intake frequency: a few times a month Alcohol type: wine Patient Tobacco Use Status: Former Tobacco user Years Smoked: quit 2006 e-Cigarette/Vaping Use: Never Used service: No Current occupational status: retired Physical Exam Vital Signs: Last Vital Signs Temp 98.0 F 10/25/23 12:35 Pulse 90 10/25/23 12:35 BP 132/60 10/25/23 12:35 Pulse Ox 98 10/25/23 12:35 Oxygen Delivery Method Room Air 10/25/23 12:35 BMI result Body Mass Index 24.5 Const General: healthy appearing and no acute distress Orientation/consciousness: patient oriented x3 Eyes Corneas: corneas normal Pupils: Equal, round and reactive pupils present Resp Effort & Inspection: normal respiratory effort and able to speak in complete sentences Neuro General: patient oriented x3 Cranial nerves: Yes Equal, round and reactive pupils present Extrem Other: Right shoulder: The shoulder joint is swollen when compared to the left shoulder. Slightly diminished range of motion with abduction of the arm above her head the patient has decent range of motion in front and to the side. No bony deformity. No tenderness along the clavicle and humerus. There is tenderness when palpating the shoulder girdle Psych Appearance: grossly normal Attitude: cooperative Assessment & Plan Assessment & Plan (1) Arthritis: Code(s): M19.90 - Unspecified osteoarthritis, unspecified site Plan Patient's symptoms consistent with an acute arthritis inflammation likely secondary to the movement elicited. Will obtain x-ray to further evaluate shoulder. We will recommend NSAIDs for short-term use. Orders: Orders XR shoulder RT min 2V Today M19.90 - Unspecified osteoarthritis, unspecified site Coding Level of Care Code Est Pt Level 3 (63543) Diagnoses Arthritis M19.90
[2023-10-25 12:35] VITALS: BP 132/60; PULSE 90; TEMP 36.7; O2SAT 98; BMI 24.5
== END 2023-10-25 13:03 | disposition home or self-care (01) ==
PROVIDERS: PCP Pediatrics; Visit Provider Emergency Medicine
DX: M19.90 Unspecified osteoarthritis, unspecified site (principal)
CPT/HCPCS: 99213

== ENCOUNTER 2023-10-25 12:59 | Outpatient (REF) | payer MEDICARE, SELFPAY ==
--- NOTE | ~2023-10-25 | XR_ITS ---
EXAMINATION: XR SHOULDER, RIGHT CLINICAL INFORMATION: Unspecified osteoarthritis. COMPARISON: Chest radiograph 04/08/2022. TECHNIQUE: Four views of the right shoulder. FINDINGS: No fracture or subluxation. [id number] arthrosis of the acromioclavicular and glenohumeral joints. Mild decreased acromiohumeral interval. No significant soft tissue abnormality. Visualized portions of the right lung are within normal limits. XR/XR shoulder RT min 2V IMPRESSION: 1. No acute fracture or subluxation. 2. 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 3. Mild decreased acromiohumeral interval that could be seen in the context of rotator cuff disease.
== END 2023-10-25 13:00 | disposition home or self-care (01) ==
LOC: HO.HMGCX 12:59
PROVIDERS: PCP Pediatrics; Visit Provider Emergency Medicine
DX: M19.90 Unspecified osteoarthritis, unspecified site (principal)
CPT/HCPCS: 73030

== ENCOUNTER 2024-02-21 09:54 | Outpatient (AMB) | payer MEDICARE, SELFPAY ==
[2024-02-21 09:56] VITALS: BP 128/86; PULSE 100; O2SAT 98; BMI 25.4
--- NOTE | 2024-02-21 09:56 | A.OFFVIS_ITS ---
Vital Signs 02/21/24 09:56 Height 5 ft 5 in Weight 152 lb 12.485 oz BMI 25.4 BP 128/86 Blood Pressure Location Rt brachial Position Sitting Pulse 100 Pulse Source Pulse Oximeter Pulse Oximetry (%) 98 Oxygen Delivery Method Room Air Intake Visit Reasons: EF Intake Note: Patient last seen 08/19/[address] Vivas, presents today for follow up. Allergies morphine [MORPHINE] Allergy (Unknown, Verified 02/21/24 09:58) HIVES, rash From MINOCIN Allergy (Unknown, Uncoded 02/21/24 09:58) DIARRHEA Medication List - Last Reconciled 02/21/24 by Jackie Mckenna MD amitriptyline 10 mg PO BEDTIME clonazepam 0.5 mg PO TID PRN duloxetine (Cymbalta) 30 mg PO BID simvastatin 20 mg PO BEDTIME sucralfate 1 g PO BID HPI Comments Details: 73-year-old female with history of eosinophilic fasciitis returns for follow-up. She was last seen by Dr. Vivas about 6 months ago. She has been off her DMARDs since 2021. She states that she has been doing about the same overall. Had any recurrence of her eosinophilic fasciitis or polymyalgia rheumatica type symptoms. Has not had any skin changes. She continues with symptoms of IBS, neuropathy, intermittent muscle cramps. Has not had any significant weight change. She is off all treatments for her cancer. As far as she knows her cancer is in remission Most recent history by Dr. Vivas 08/2023: The patient returns for evaluation of her eosinophilic fasciitis. She says the skin seems stable. She does notice some discoloration of the skin in the back. She is not having any Raynaud's symptoms. She had a scare when her CT scan earlier this fall showed some ground-glass opacities in the chest. A repeat a few months later showed they had resolved however. She is bothered mostly by lower extremity pain at night. She thinks this is due to neuropathy. She does take gabapentin 400 mg at night, sertraline 25 mg daily, and amitriptyline at bedtime. For anxiety there is a p.r.n. clonazepam that she can take. She admits that she did fall in the shower recently. She thinks it is because of the paresthesias and numbness in her feet. She did not sustain any significant injury but it was frightening to her. She has a small shower stool that she uses in the shower. She has a shower grab bar but it was pulled out of the wall when she fell. She is walking regularly. Increased time on her feet does not seem to cause the lower extremity discomfort to change any. [facility] Medical History Arthritis Hyperlipidemia Osteopenia Irritable bowel syndrome History of adenocarcinoma of lung Long-term use of immunosuppressant medication Eosinophilic fasciitis Surgical History H/O: hysterectomy Hx of tonsillectomy Social History Household Members: Spouse Housing: Condominium Are you a primary caregivers homecare to a significant other at home: No Do you presently have visiting nurse or other home services: No 75 years or older and lives alone: No Alcohol intake: current Alcohol intake frequency: a few times a month Alcohol type: wine Patient Tobacco Use Status: Former Tobacco user Years Smoked: quit 2006 e-Cigarette/Vaping Use: Never Used service: No Current occupational status: retired Review of Systems Musc Reports arthralgias, Reports muscle cramps and Reports numbness Skin/Breast Denies rash Neuro Reports numbness Physical Exam Vital Signs: Last Vital Signs Pulse 100 02/21/24 09:56 BP 128/86 02/21/24 09:56 Pulse Ox 98 02/21/24 09:56 Oxygen Delivery Method Room Air 02/21/24 09:56 BMI result Body Mass Index 25.4 Const General: cooperative, healthy appearing and comfortable Nutritional Appearance: average body habitus Orientation/consciousness: patient oriented x3 Limitations: no limitations HEENT Head: Yes normocephalic and Yes atraumatic Mouth: moist mucous membranes Resp Effort & Inspection: normal respiratory effort and able to speak in complete sentences Auscultation: clear to auscultation bilaterally Skin General skin exam: no rashes or lesions noted Neuro General: patient oriented x3 Extrem Other: No active synovitis Normal nailfold capillaroscopy Assessment & Plan Assessment & Plan (1) Eosinophilic fasciitis: Comment: Onset 05/24. Initial presentation with PMR picture. Probably due to nivolumab(a checkpoint inhibitor) Fasciitis seen on MRI 06/23 High dose prednisone 06/23 Mycophenolate added 07/24 - stopped in 09/24 due to diarrhea Myfortic in place of CellCept 09/24 Prednisone slowly tapered off: September: Mycophenolate was tapered and stopped Code(s): M35.4 - Diffuse (eosinophilic) fasciitis; D72.18 - Eosinophilia in diseases classified elsewhere Category: Medical Plan: 73-year-old female with history of eosinophilic fasciitis that was thought to be attributed to her lung cancer immunotherapy who presents for follow-up. She was treated with mycophenolate and prednisone, mycophenolate was later switched to Myfortic. Has been off her DMARDs since March of 2022. Without recurrence. I do not see any signs of an active autoimmune rheumatic disease on exam. Advised patient to follow-up as needed (2) History of adenocarcinoma of lung: Comment: Diagnosed on lung biopsy. Treated initially with carboplatin, Taxol, Avastin for 4 cycles Alimta X 5 months Optivo for 19 months -stopped due to eosinophilia/PMR - eventually eosinophilic fasciitis Code(s): Z85.118 - Personal history of other malignant neoplasm of bronchus and lung Category: Medical Plan I spent 15 minutes reviewing patient's chart, evaluating patient, counseling patient and documenting in the chart Coding Level of Care Code Est Pt Level 3 (95681) Diagnoses Eosinophilic fasciitis M35.4; D72.18 History of adenocarcinoma of lung Z85.118
== END 2024-02-21 10:26 | disposition home or self-care (01) ==
PROVIDERS: PCP Pediatrics; Visit Provider Student in an Organized Health Care Education/Training Program
DX: M35.4 Diffuse (eosinophilic) fasciitis (principal); D72.18 Eosinophilia in diseases classified elsewhere; Z85.118 Personal history of other malignant neoplasm of bronchus and lung
CPT/HCPCS: 99213

== ENCOUNTER → 2024-02-21 09:54 | Outpatient (BNVA) | payer MEDICARE, SELFPAY | PROVIDERS: PCP Pediatrics; Visit Provider Student in an Organized Health Care Education/Training Program | DX: D72.18 Eosinophilia in diseases classified elsewhere (principal); M35.4 Diffuse (eosinophilic) fasciitis; Z85.118 Personal history of other malignant neoplasm of bronchus and lung | CPT/HCPCS: 99212 ==

== ENCOUNTER → 2025-03-02 11:29 | Outpatient (BNV) | payer MEDICARE, SELFPAY | PROVIDERS: Emergency Provider Emergency Medicine; Visit Provider Radiology Diagnostic Radiology | DX: J84.9 Interstitial pulmonary disease, unspecified (principal) | CPT/HCPCS: 71045 ==

== ENCOUNTER 2025-03-02 12:06 | Emergency (ER) | payer MEDICARE, SELFPAY ==
--- NOTE | 2025-03-02 | ECG_ITS ---
Test Reason : CP Blood Pressure : */* mmHG Vent. Rate : 86 BPM Atrial Rate : 86 BPM P-R Int : 148 ms QRS Dur : 76 ms QT Int : 348 ms P-R-T Axes : 31 -41 34 degrees QTcB Int : 416 ms Normal sinus rhythm Left axis deviation Abnormal ECG When compared with ECG of 28-Feb-2019 10:41, No significant change was found Referred By: Generic ED Physician Electronically Signed By: CECE REYNA
--- NOTE | ~2025-03-02 | XR_ITS ---
EXAMINATION: XR CHEST CLINICAL INFORMATION: chest pain COMPARISON: April 08, 2022. TECHNIQUE: Frontal view of the chest was obtained. FINDINGS: Pulmonary reticular pattern. Linear opacities extending from the perihilar regions bilaterally. No consolidation pleural effusion or pneumothorax. No hyperinflation. Cardiomediastinal/size is normal. Mild multilevel thoracic stenosis. Degenerative changes in the acromioclavicular joints. XR/XR chest 1V IMPRESSION: Chronic interstitial lung disease. Electronically signed by: Kenneth Quiros MD 03/02/2025 12:41 PM EDT
[2025-03-02 12:16] VITALS: BP 168/82; BP 185/100; PULSE 110; PULSE 99; RESP 19; TEMP 36.9; O2SAT 99; BMI 29.1
--- NOTE | 2025-03-02 12:36 | ED.CHESTPAIN ---
HPI - Chest Pain General Chief Complaint: Chest Pain Stated Complaint: GENERALIZED CP Time Seen by Provider: 03/02/25 12:36 Source: patient Mode of arrival: EMS Limitations: no limitations History of Present Illness ED Provider: Roscoe Kirk PA-C HPI narrative: 74-year-old female with with history of non-small cell lung cancer followed by [facility] [place] in remission, HLD, IBS, presents to the ED by EMS due to sudden onset mid chest pain that happened this morning while patient was sitting down in talking on the phone. Patient reports when she is on talking on the phone and got up to walk around she noticed that she was mildly SOB. She states the chest pain started out as a sharp pain and now has transformed to a dull gnawing pain that radiates to her mid back, this is associated with nausea and increased belching. Denies vomiting, diarrhea, black/tarry stool, headaches, urinary symptoms, abdominal pain. MD complaint: chest pain Pertinent past history: other (Non-small cell lung cancer, in remission) Onset (ago): hour(s) (2) Timing of current episode: constant Onset: during rest and other (While sitting and talking on the phone) Pain location: substernal Pain radiation: back Severity: moderate Quality: dull and other (gnawing) Relieving factors: nothing Exacerbating factors: movement Associated symptoms: nausea Related Data Home Medications ?Medication ?Instructions ?Recorded ?Confirmed clonazepam 0.5 mg tablet 0.5 mg PO TID PRN anxiety 11/12/21 08/19/23 simvastatin 20 mg tablet 20 mg PO BEDTIME 06/17/22 08/19/23 amitriptyline 10 mg tablet 10 mg PO BEDTIME 10/19/22 08/19/23 duloxetine 30 mg capsule,delayed 30 mg PO BID 02/21/24 release (Cymbalta) sucralfate 1 gram tablet 1 g PO BID 02/21/24 Allergies Allergy/AdvReac Type Severity Reaction Status Date / Time morphine (MORPHINE) Allergy Unknown HIVES, rash Verified 03/02/25 12:22 From MINOCIN AdvReac Mild DIARRHEA Uncoded 03/02/25 12:22 Review of Systems Review of Systems: CONST: Negative for fever, body aches and chills. HENT: Negative for neck pain/stiffness, headache, congestion, sore throat, swelling. EYES: Negative for discharge/pain or vision changes. RESP: Negative for cough/hemoptysis and POS shortness of breath on exertion. CV: POS mid sternal chest pain. Negative difficulty breathing, palpitations. ABD: Negative pain, vomiting. POS nausea : Negative increase frequency, dysuria, blood in urine or stool. MUSC: Negative for muscle aches, edema. SKIN: Negative rash, lesions/sores. NEURO: Negative headache, dizziness, weakness. Yes all other systems are reviewed and are negative PMFSH Past Medical History Attestation statement: The following information was validated with the patient. Source: old records reviewed and nursing notes reviewed Medical History Arthritis Hyperlipidemia Osteopenia Irritable bowel syndrome History of adenocarcinoma of lung Long-term use of immunosuppressant medication Eosinophilic fasciitis Surgical History H/O: hysterectomy Hx of tonsillectomy Social History Social History Household Members: Spouse [facility] Are you a primary child care teacher to a significant other at home: No Do you presently have visiting nurse or other home services: No Alcohol intake: current Alcohol intake frequency: a few times a month Alcohol type: wine Patient Tobacco Use Status: Former Tobacco user Years Smoked: quit 2007 Smoked in Last 30 Days: No e-Cigarette/Vaping Use: Never Used Use of substances other than those prescribed or required for medical reasons: No Advance Directives: Yes Advance Directives Information Provided: No Advance Directives on File: No Do you have a plan to hurt others: No Plan service: No Current occupational status: retired Physical Exam Vital Signs: Vital Signs: Last Vital Signs Temp 98.1 F 03/02/25 16:07 Pulse 90 03/02/25 16:07 Resp 17 03/02/25 16:07 BP 133/81 03/02/25 16:07 Pulse Ox 96 03/02/25 16:07 O2 Del Method Room Air 03/02/25 16:07 BMI result Body Mass Index 29.1 GENERAL APPEARANCE: ?AxOx4, generally well-appearing, no acute distress. HEENT: ?NC, AT. MMM. EOMI, clear conjunctiva, oropharynx clear. HEART:? Normal rate and regular rhythm, normal S1/S1, no m/r/g LUNGS:? CTAB, moving air well. No crackles or wheezes are heard. ABDOMEN: ?Soft, nontender, nondistended with good bowel sounds heard. BACK: No CVAT, no obvious deformity. EXTREMITIES: ?Without cyanosis, clubbing or edema. NEUROLOGICAL: ?Grossly nonfocal. Alert and oriented, moving all 4 extremities. Observed to ambulate with normal gait. Skin: ?Warm and dry without any rash. Medications Administered Discontinued Medications Generic Name Dose Route Start Last Admin Trade Name Freq PRN Reason Stop Dose Admin Al Hydroxide/Mg Hydroxide 30 ml 03/02/25 14:06 03/02/25 14:28 Magnesium Hydrox/Alum Hydrox 30 Ml Oral.Susp PO 03/02/25 14:07 30 ml ONCE ONE Administration Lactated Ringer's 1,000 mls @ 999 mls/hr 03/02/25 14:06 03/02/25 14:29 Lr IV 03/02/25 15:06 999 mls/hr .Q1H1M ONE Administration Lidocaine HCl 15 ml 03/02/25 14:06 03/02/25 14:28 Lidocaine Hcl Viscous 2 % 15 Ml Solution MUCOUS MEM 03/02/25 14:07 15 ml ONCE ONE Administration Pantoprazole Sodium 40 mg 03/02/25 14:06 03/02/25 14:28 Pantoprazole Sodium 40 Mg/10 Ml Vial IVPUSH 03/02/25 14:07 40 mg ONCE ONE Administration Medical Decision Making Medical Decision Making MDM Narrative: 74-year-old female with with history of non-small cell lung cancer followed by [facility] Oncology in remission, HLD, IBS, GERD, Hernandez's esophagus, presents to the ED by EMS due to sudden onset mid chest pain that happened this morning while patient was sitting down in talking on the phone. Patient reports when she is on talking on the phone and got up to walk around she noticed that she was mildly SOB. She states the chest pain started out as a sharp pain and now has transformed to a dull gnawing pain that radiates to her mid back, this is associated with nausea and increased belching. VSS, in no acute distress, patient nontoxic appearing. Physical exam benign. EKG without ST elevation/depression, T-wave abnormalities, initial troponin WNL- less likley ACS. Patient without tachycardia, tachypnea, 02 sat at 97% on RA this is less likely PE however, SOB and history of NSCLC I will obtain D-dimer. Labs WNL, lipase WNL- less likely pancreatitis. Will medicate with IV fluids and GI cocktail due to increased belching and patient complaining of acid burning throat. Course 16:02- patients chest pain, belching, and burning throat relieved after GI cocktail. Patient states she is feeling much better. D-dimer negative at 150- less likley PE. Patient feels comfortable to go home and follow up with PCP. I believe patients chest pain caused by GERD symptoms. Patient states she has a longstanding history of GERD with Hernandez's esophagus, has been on PPI but is not receiving any relief. Patient states last endoscopy was six-months ago. I encouraged the patient to follow up with PCP and GI for increased GERD like symptoms. Differential Diagnosis Differential Diagnoses: The differential diagnosis associated with the presentation includes ACS PE GERD Pancreatitis Admission/Observation Consideration of admission/observation: Escalation of care including admission/observation considered Lab Data MDM Lab Attestation statement: I reviewed the patient's lab results. 03/02/25 12:47 03/02/25 12:47 Labs: Lab Results 03/02/25 03/02/25 Range/Units 12:47 14:24 WBC 6.7 (4.8-10.8) X10*3/uL RBC 4.72 (4.20-5.50) X10*6/uL Hgb 13.8 (12.0-16.0) g/dl Hct 39.3 (37.0-47.0) % MCV 83.3 (80.0-98.0) fL MCH 29.2 (27.0-33.0) pg MCHC 35.1 H (31.0-35.0) g/dl RDW 13.1 (11.0-16.0) % Plt Count 194 (160-400) X10*3/uL MPV 8.8 L (9.4-12.3) fL Immature Gran % (Auto) 0.6 H (0.0-0.4) % Neut % (Auto) 61.8 (45-73) % Lymph % (Auto) 24.7 (20-40) % Wirt % (Auto) 7.3 (2-11) % Eos % (Auto) 4.6 H (0-4) % Baso % (Auto) 1.0 (0-2) % Lymph # (Auto) 1.7 (1.2-4.9) X10*3/uL Wirt # (Auto) 0.5 (0.1-1.2) X10*3/uL Eos # (Auto) 0.3 (0.0-0.4) X10*3/uL Baso # (Auto) 0.1 (0.0-0.2) X10*3/uL Abs Immat Gran (auto) 0.04 H (0.00-0.03) X10*3/uL Absolute Neuts (auto) 4.2 (2.0-8.3) x10*3/uL Absolute Nucleated RBC 0.000 (0.0-0.012) X10*3/uL Nucleated RBC % (auto) 0.0 (0.0-0.2) /100WBC D-Dimer High Sensitivty < 150 NG/ML Sodium 140 (135-145) mmol/L Potassium 4.8 (3.3-5.1) mmol/L Chloride 105 (96-108) mmol/L Carbon Dioxide 28 (22-29) mmol/L Anion Gap 12 (12-20) BUN 13 (9-16) mg/dL Creatinine 0.68 (0.5-1.4) mg/dL Estim Creat Clear Calc 76.6 Estimated GFR > 60 Random Glucose 101 (60-115) mg/dL Calcium 9.6 (8.4-10.2) mg/dL Magnesium 2.3 (1.6-2.6) mg/dL Troponin I High Sens < 2.7 (<3.5-17.0) ng/L Lipase 35 (8-78) U/L Independent Interpretation I performed an independent interpretation of an: EKG and Plain X-Ray Interpretation: I independently interpreted the EKG Vent. Rate : 86 BPM Atrial Rate : 86 BPM P-R Int : 148 ms QRS Dur : 76 ms QT Int : 348 ms P-R-T Axes : 31 -41 34 degrees QTcB Int : 416 ms Normal sinus rhythm Left axis deviation Radiology Impression Discussion of test interpretation with radiology: I have reviewed the radiologist's reading. Radiologist Impression: FINDINGS: Pulmonary reticular pattern. Linear opacities extending from the perihilar regions bilaterally. No consolidation pleural effusion or pneumothorax. No hyperinflation. Cardiomediastinal/size is normal. Mild multilevel thoracic stenosis. Degenerative changes in the acromioclavicular joints. XR/XR chest 1V IMPRESSION: Chronic interstitial lung disease. Electronically signed by: Kenneth Quiros MD 03/02/2025 12:41 PM EDT RP Dictated By: Kenneth Patel MD Signed By: <Electronically signed by Kenneth Henry MD in OV> 03/02/25 1241 External Record Review External record reviewed: Inpatient record, Office record and Outpatient record Chronic Conditions Patient?s care impacted by: Other (GERD, Hernandez's esophagus, [id number] lung cancer in remission) Discharge Plan Discharge Clinical Impression: Gastroesophageal reflux disease, Chest pain Patient Disposition: Home, Self-Care Instructions: Chest Pain (ED), Chest Pain (DC), GERD (Gastroesophageal Reflux Disease) (ED) Additional Instructions: You were evaluated in the ED today due to chest pain and shortness of breath. Your labs were reassuring, troponin within normal limits, your EKG did not show any emergent cardiac process. Your chest x-ray did not reveal any acute emergent findings. Your D-dimer evaluating possible pulmonary embolism was negative. You were medicated with IV fluids and pantoprazole, and a GI cocktail consisting of Maalox, and viscous lidocaine which provided you with relief of chest pain, burning esophagus, and increased belching. You should continue to take your daily PPI and you can continue to take Maalox to help control the acid production of your stomach while you are awaiting follow up with your PCP and GI doctor. Please return to the emergency department if you experience worsening chest pain, worsening shortness of breath, nausea, vomiting, dizziness, lightheadedness, worsening GERD like symptoms, or any other new/concerning/worsening symptoms Prescriptions: No Action simvastatin 20 mg tablet 20 mg PO BEDTIME amitriptyline 10 mg tablet 10 mg PO BEDTIME clonazepam 0.5 mg tablet 0.5 mg PO TID PRN (Reason: anxiety) sucralfate 1 gram tablet 1 g PO BID duloxetine [Cymbalta] 30 mg capsule,delayed release(DR/EC) 30 mg PO BID Print Language: Singaporean
[2025-03-02 12:37] VITALS: BP 168/82; PULSE 92; RESP 16; TEMP 36.5; O2SAT 95
[2025-03-02 12:51] LABS: MANUAL DIFF FLAG NO
[2025-03-02 12:52] LABS: Basophils Absolute Auto 0.1 X10*3/uL (0.0-0.2); Eosinophils Absolute Auto 0.3 X10*3/uL (0.0-0.4); Eosinophils Percent Auto 4.6 % (0-4); Hematocrit 39.3 % (37.0-47.0); Hemoglobin 13.8 g/dl (12.0-16.0); Imm Gran Abs Auto 0.04 X10*3/uL (0.00-0.03); Imm Gran Pct Auto 0.6 % (0.0-0.4); Lymphocytes Absolute Auto 1.7 X10*3/uL (1.2-4.9); Lymphocytes Percent Auto 24.7 % (20-40); Mean Corpuscular HGB Conc 35.1 g/dl (31.0-35.0); Mean Corpuscular Hemoglobin 29.2 pg (27.0-33.0); Mean Corpuscular Volume 83.3 fL (80.0-98.0); Mean Platelet Volume 8.8 fL (9.4-12.3); Monocytes Absolute Auto 0.5 X10*3/uL (0.1-1.2); Monocytes Percent Auto 7.3 % (2-11); Neutrophils Absolute Auto 4.2 x10*3/uL (2.0-8.3); Neutrophils Percent Auto 61.8 % (45-73); Platelet Count 194 X10*3/uL (160-400); Red Blood Count 4.72 X10*6/uL (4.20-5.50); Red Cell Distribution Width 13.1 % (11.0-16.0); White Blood Count 6.7 X10*3/uL (4.8-10.8)
[2025-03-02 13:04] LABS: Lipase 35 U/L (8-78)
[2025-03-02 13:07] LABS: Anion Gap 12 (12-20); Blood Urea Nitrogen 13 mg/dL (9-16); Calcium 9.6 mg/dL (8.4-10.2); Carbon Dioxide 28 mmol/L (22-29); Chloride 105 mmol/L (96-108); Creatinine Clr Calc Pharmacy 76.6; Estimated Glomerular Filt Rate > 60; Glucose Random 101 mg/dL (60-115); Magnesium 2.3 mg/dL (1.6-2.6); Potassium 4.8 mmol/L (3.3-5.1); Sodium 140 mmol/L (135-145)
[2025-03-02 13:13] LABS: Troponin-I High Sensitivity < 2.7 ng/L (<3.5-17.0)
--- OUTSIDE RECORDS SUMMARY | 2025-03-02 13:45 | XMS_ITS | Encounter Summary ---
Author Organization [facility] Address [address] [place] [id number] Care Team Providers Care Coding Specialist Home Health Name Role Phone Sania Hyatt MD Primary Care Provider [phone] Reason for Referral * Non-Referral (Routine) - Closed Specialty Diagnoses / Procedures Referred By Conterik t Referred To Contact Procedures EMG Scan External, Provider Referral ID Status Reason Start Date Expiration Date Visits Re quested Visits Authorized [id number] Closed 08/16/2018 08/16/2019 1 1 Encounter Details Date Type Department Care Team (Late st Contact Info) Description 08/16/2018 Scanned Document [facility] [address] [place] [id number] Sania Hyatt MD [address] [place] [id number] Social History Tobacco Use Types Packs/Day Years Used Date Smoking Tobacco: Never Smokeless Tobacco: Never Comments Unknown Sex and Gender Information Value Date Recorded Sex Assigned at Female 10/17/2018 10:59 PM EST Legal Sex Female 12:32 PM EST Gender Identity Female 10/17/2018 10:59 PM EST Sexual Orientation Straight 10/17/2018 10 :59 PM EST documented as of this encounter Plan of Treatment Not on file documented as of this encounter Procedures Procedure Name Priority Date/Time Associated Diagnosis Comments MRI RESULT SCAN Routine 06/11/2018 CT RESULT SCAN Routine 06/01/2018 PATHOLOGY/CYTOLOGY SCAN Routine 05/23/2018 LAB SCAN Routine 05/11/2018 MAMMOGRAPHY RESULT SCAN Routine 04/22/2018 CT RESULT SCAN Routine 03/16/2018 LAB SCAN Routine 01/28/2018 EMG SCAN Routine 11/10/2017 CT RESULT SCAN Routine 11/04/2017 MRI RESULT SCAN Routine 10/14/2017 documented in this encounter Results * MRI Result Scan (06/11/2018) us David Vivas MD IMG SCAN REPORTS Final Resul t * CT Result Scan (06/01/2018) us Provider External IMG SCAN REPORTS Final Result * Pathology/Cytology Scan (05/23/2018) us Sydni Guevara MD PATHOLOGY/CYTOLOGY ORDERABLES Fi nal Result * Lab Scan (05/11/2018) Blood specimen (specimen) us Lamonte Stokes MD LAB BLOOD ORDERABLES Final Resul t * Mammography Result Scan (04/22/2018) us Provider External IMG SCAN REPORTS Final Result * CT Result Scan (03/16/2018) us Provider External IMG SCAN REPORTS Final Result * Lab Scan (01/28/2018) Blood specimen (specimen) us Noa Gamino MD LAB BLOOD ORDERABLES Final Result * EMG Scan (11/10/2017) us Provider External NEUROLOGY ORDERABLES Final Res ult * CT Result Scan (11/04/2017) us Deann Prieto MD IMG SCAN REPORTS Final Result * MRI Result Scan (10/14/2017) us Sania Hyatt MD IMG SCAN REPORTS Final Re sult documented in this encounter Visit Diagnoses Not on filedocumented in this encounter Care Teams Coding Specialist Home Health Relationship Specialty Start Date End Date Sania Hyatt MD PCP - General Internal Medicine 08/15/18 documented as of this encounter
[2025-03-02 14:21] VITALS: BP 140/75; PULSE 94; RESP 20; TEMP 36.9; O2SAT 96
[2025-03-02] MEDS: Magnesium Hydrox/Alum Hydrox 30 ML ORAL.SUSP PO (14:28)
[2025-03-02] MEDS: Pantoprazole Sodium 40 MG/10 ML VIAL IVPUSH (14:28)
[2025-03-02] MEDS: Lidocaine HCl Viscous 2 % 15 ML SOLUTION MUCOUS MEM (14:28)
[2025-03-02] MEDS: Lactated Ringers 1,000 ML 999 ML IV (14:29)
--- NOTE | 2025-03-02 14:34 | PC.NURSE ---
PAtient A&O x 3. Patient presents to ED c/o of chest pain rated 7/10 radiates toward her back. Patient was nauseous but that has resolved, but the associated belching continues. EKG = NSr patient on pens and pencils dipper 97 bpm. CXR reveals chronic interstitial lung disease. Patient given GI cocktail, effectiveness pending. 20G in left wrist currently infusing LR. Plan of care on going.
[2025-03-02 14:45] LABS: D Dimer High Sensitivity < 150 NG/ML
[2025-03-02 16:07] VITALS: BP 133/81; PULSE 90; RESP 17; TEMP 36.7; O2SAT 96
[2025-03-02 16:23] LABS: Troponin-I High Sensitivity < 2.7 ng/L (<3.5-17.0)
[2025-03-02 16:28] VITALS: BP 133/81; PULSE 90; RESP 16; TEMP 36.3; O2SAT 97
== END 2025-03-02 16:44 | disposition home or self-care (01) ==
PROVIDERS: Emergency Provider Emergency Medicine; PCP Pediatrics
DX: K21.9 Gastro-esophageal reflux disease without esophagitis (principal); R07.9 Chest pain, unspecified; R06.02 Shortness of breath; E78.5 Hyperlipidemia, unspecified; Z85.118 Personal history of other malignant neoplasm of bronchus and lung; Z79.60 Long term (current) use of unspecified immunomodulators and immunosuppressants; Z79.899 Other long term (current) drug therapy; Z79.02 Long term (current) use of antithrombotics/antiplatelets
CPT/HCPCS: 36415; 71045; 80048; 83690; 83735; 84484; 85025; 85379; 93005; 96361; 96374; 99284; 99285; J2470; J7120

== ENCOUNTER → 2025-03-02 12:29 | Outpatient (BNV) | payer MEDICARE, SELFPAY | PROVIDERS: Emergency Provider Emergency Medicine; PCP Pediatrics; Visit Provider Internal Medicine | DX: R94.31 Abnormal electrocardiogram [ECG] [EKG] (principal); R07.9 Chest pain, unspecified | CPT/HCPCS: 93010 ==

== ENCOUNTER 2025-07-10 08:42 | Outpatient (AMB) | payer MEDICARE, SELFPAY ==
--- NOTE | 2025-07-10 08:50 | A.OFFVIS_ITS ---
Vital Signs 07/10/25 08:57 Height 5 ft 5 in Weight 150 lb 12.739 oz BMI 25.1 BP 140/80 H Blood Pressure Location Lt brachial Position Sitting Pulse 89 Pulse Source Pulse Oximeter Pulse Oximetry (%) 98 Oxygen Delivery Method Room Air Intake Visit Reasons: EF Intake Note: Patient presents for EF follow up. Allergies morphine (MORPHINE) Allergy (Unknown, Verified 07/10/25 08:55) HIVES, rash From MINOCIN Adverse Reaction (Mild, Uncoded 03/02/25 12:22) DIARRHEA HPI Comments Details: Patient is a 74-year-old female with hyperlipidemia, GERD, IBS, hidradenitis suppurativa, osteopenia and eosinophilic fasciitis here today for follow up Interval History: Patient last seen 02/21/[address] Mckenna - Not on any DMARDs - She has been off her DMARDs since 2021. - She states that she has been doing about the same overall. Had any recurrence of her eosinophilic fasciitis or polymyalgia rheumatica type symptoms. Has not had any skin changes. She continues with symptoms of IBS, neuropathy, intermittent muscle cramps. Has not had any significant weight change. She is off all treatments for her cancer. As far as she knows her cancer is in remission Today - Not on any DMARDs - Representing to reestablish care - no worsening of her skin symptoms - complains of chronic neuropathy which is debilitating. Has tried gabapentin in the past with no relief. Currently on duloxetine. Tried amitriptyline but this was discontinued due to weight gain - also seen GI for IBS - cancer currently in remission Rheumatologic History: Most recent history by Dr. Vivas 08/2023: The patient returns for evaluation of her eosinophilic fasciitis. She says the skin seems stable. She does notice some discoloration of the skin in the back. She is not having any Raynaud's symptoms. She had a scare when her CT scan earlier this fall showed some ground-glass opacities in the chest. A repeat a few months later showed they had resolved however. She is bothered mostly by lower extremity pain at night. She thinks this is due to neuropathy. She does take gabapentin 400 mg at night, sertraline 25 mg daily, and amitriptyline at bedtime. For anxiety there is a p.r.n. clonazepam that she can take. She admits that she did fall in the shower recently. She thinks it is because of the paresthesias and numbness in her feet. She did not sustain any significant injury but it was frightening to her. She has a small shower stool that she uses in the shower. She has a shower grab bar but it was pulled out of the wall when she fell. She is walking regularly. Increased time on her feet does not seem to cause the lower extremity discomfort to change any. Onset 05/24. Initial presentation with PMR picture. Probably due to nivolumab(a checkpoint inhibitor) Fasciitis seen on MRI 06/23 High dose prednisone 06/23 Mycophenolate added 07/24 - stopped in 09/24 due to diarrhea Myfortic in place of CellCept 09/24 Prednisone slowly tapered off: September: Mycophenolate was tapered and stopped Current Rheumatology Medication(s): [facility] Medical History Arthritis Hyperlipidemia Osteopenia Irritable bowel syndrome History of adenocarcinoma of lung Long-term use of immunosuppressant medication Eosinophilic fasciitis Surgical History H/O: hysterectomy Hx of tonsillectomy Social History Household Members: Spouse Housing: [facility] Are you a primary manager intensive care unit to a significant other at home: No Do you presently have visiting nurse or other home services: No 75 years or older and lives alone: No Alcohol intake: current Alcohol intake frequency: a few times a month Alcohol type: wine Patient Tobacco Use Status: Former Tobacco user Years Smoked: quit 2006 e-Cigarette/Vaping Use: Never Used service: No Current occupational status: retired Review of Systems Narrative Review of Systems Constitutional: Denies fever, chills, weight loss ENT: Denies vision changes, eye pain or eye redness Pulm: Denies SOB, BENNETT, hemoptysis, wheezing Cards: Denies chest pain, palpitations Skin: Denies Raynaud's, rash, nail changes, photosensitivity, BREW HOUSE SUPERVISOR: Denies headaches, weakness, paresthesias, recurrent falls MSK: as per HPI All other systems reviewed and are unremarkable except noted above Physical Exam Exam Exam: Vital signs reviewed Physical Examination CONSTITUITIONAL Patient alert and cooperative. Well appearing and in no apparent painful distress MSK Hands * Right Hand: Able to make a fist. No swelling or tenderness to palpation of the MCPs, PIPs or DIPs. No deformities noted. * Left Hand: Able to make a fist. No swelling or tenderness to palpation of the MCPs, PIPs or DIPs. No deformities noted. Wrists * Right Wrist: Full ROM to flexion and extension. No swelling or TTP * Left Wrist: Full ROM to flexion and extension. No swelling or TTP Elbows * Right Elbow: Full ROM. No swelling or TTP. No TTP of the medial epicondyle. No TTP of the lateral epicondyle * Left Elbow: Full ROM. No swelling or TTP. No TTP of the medial epicondyle. No TTP of the lateral epicondyle Shoulders * Right shoulder: Full ROM. No swelling noted. No TTP of the AC joint. No TTP of the subacromial bursa. No TTP of the posterior shoulder * Left shoulder: Full ROM. No swelling noted. No TTP of the AC joint. No TTP of the subacromial bursa. No TTP of the posterior shoulder Knees * Right knee: Full ROM. No swelling noted. No TTP of the knee joint line. No TTP of pes anserine bursa * Left knee: Full ROM. No swelling noted. No TTP of the knee joint line. No TTP of pes anserine bursa. Ankles * Right ankle: Good ankle dorsiflexion and plantar flexion. No swelling. No TTP of the ankle joint * Left ankle: Good ankle dorsiflexion and plantar flexion. No swelling. No TTP of the ankle joint Feet * Right foot: Negative squeeze test * Left foot: Negative squeeze test Tender points? * No tenderness to palpation of the bilateral trapezius, supraspinatus, anterior costochondral junctions, bilateral suboccipital muscle insertions SKIN No rashes No dimpling Vital Signs: Last Vital Signs Pulse 89 07/10/25 08:57 BP 140/80 H 07/10/25 08:57 Pulse Ox 98 07/10/25 08:57 Oxygen Delivery Method Room Air 07/10/25 08:57 BMI result Body Mass Index 25.1 Results Reviewed Results Reviewed: Laboratory Tests 03/02/25 12:47 WBC 6.7 RBC 4.72 Hgb 13.8 Plt Count 194 Eos # (Auto) 0.3 Sodium 140 Potassium 4.8 Chloride 105 Carbon Dioxide 28 BUN 13 Creatinine 0.68 Assessment & Plan Assessment & Plan (1) Eosinophilic fasciitis: Comment: Onset 05/24. Initial presentation with PMR picture. Probably due to nivolumab(a checkpoint inhibitor) Fasciitis seen on MRI 06/23 High dose prednisone 06/23 Mycophenolate added 07/24 - stopped in 09/24 due to diarrhea Myfortic in place of CellCept 09/24 Prednisone slowly tapered off: September: Mycophenolate was tapered and stopped Code(s): M35.4 - Diffuse (eosinophilic) fasciitis; D72.18 - Eosinophilia in diseases classified elsewhere Category: Medical Plan: #Eosinophilic Fasciitis Patient is a 74-year-old female with a history of eosinophilic fasciitis likely on a background of checkpoint inhibitor use. Previously on MMF however this was tapered off. No evidence of relapse at this time Plan - No DMARDs required - RTC 1 year - Labs before visit: CBC, CMP, ESR, CRP (2) Neuropathy: Code(s): G62.9 - Polyneuropathy, unspecified Plan: #Peripheral neuropathy Patient with peripheral neuropathy, unsure of the cause, maybe due to previous chemotherapy use. Has tried gabapentin and amitriptyline without benefit. We will try alpha lipoic acid Plan - Alpha lipoic acid 600mg daily Plan I spent 30 minutes reviewing the record and labs, taking a history, examining the patient, discussing the treatment plan, ordering diagnostic work up and documenting in the medical record Medications: New alpha lipoic acid 600 mg PO DAILY 90 tabs 1RF G62.9 - Polyneuropathy, unspecified Coding Level of Care Code Est Pt Level 4 (88517) Complex EM visit Add On G2211 Diagnoses Eosinophilic fasciitis M35.4; D72.18 Neuropathy G62.9
[2025-07-10 08:57] VITALS: BP 140/80; PULSE 89; O2SAT 98; BMI 25.1
--- OUTSIDE RECORDS SUMMARY | 2025-07-10 09:09 | XMS_ITS | Encounter Summary ---
Author Organization [facility] Address [address] [place] [id number] Care Team Providers Care Medical Laboratory Manager Name Role Phone Sania Hyatt MD Primary Care Provider [phone] Encounter Details Date Type Department Care Team (Late st Contact Info) Description 02/23/2019 Scanned Document Medical Dermatology at [address] [facility] [address] [facility] [address] [place] [address] External, Provider Social History Tobacco Use Types Packs/Day Years Used Date Smoking Tobacco: Former Cigarettes Q uit: 10/18/2007 Smokeless Tobacco: Never Comments Unknown Sex and Gender Information Value Date Recorded Sex Assigned at Female 10/17/2018 10:59 PM EST Legal Sex Female 12:32 PM EST Gender Identity Female 10/17/2018 10:59 PM EST Sexual Orientation Straight 10/17/2018 10 :59 PM EST documented as of this encounter Plan of Treatment Not on file documented as of this encounter Visit Diagnoses Not on filedocumented in this encounter Care Teams Medical Laboratory Manager Relationship Specialty Start Date End Date Sania Hyatt MD PCP - General Internal Medicine 08/15/18 documented as of this encounter
--- OUTSIDE RECORDS SUMMARY | 2025-07-10 09:09 | XMS_ITS | Patient Health Record ---
Author Organization [facility] Address [address] [place] [address] Care Team Providers Care Grain Mill Products Inspector Name Role Phone Edmar ROYAL, Sania Primary Care Provider Un available Stacie Gracia Unavailable [phone] Allergies Allergen (clinical drug ingredient) Drug/Non Drug Allergy documented on EMR Reaction Allergy Type Onset Date Status minocycline Minocin diarrhea Drug Allergy Activ e morphine Morphine skin reaction, hives Drug Allergy Active Reason For Referral No Information Medications Medication SIG (Take, Route, Frequency, Duration) Notes Start Date End Date Status PriLOSEC OTC Not-Chau ing Zoloft Not-Taking Wellbutrin 150 mg daily No t-Taking Prednisone Not-Takin g Omeprazole 20 MG 1 capsule 1/2 to 1 h our before morning meal Orally twice a day Active traMADol HCl Unknown clonazePAM 0.5 MG 1 tablet Orally twic e a day Active Metamucil Not-Taking Cymbalta 30mg Active Gas-X Not-Taking Simvastatin 20 MG 1 tablet in the even ing Orally Once a day Active Tylenol Not-Taking Ketoconazole 2 % 1 application Apply a thin layer to externally to feet, even between toes Twice a day; Duration: 30 days Active Magnesium Glycinate 100 MG 2 capsules Orally daily Acti ve Gabapentin 600 MG 1 tablet Orally Once a day; Duration: 30 day(s) Not-Taking Myfortic Not-Taking KlonoPIN Not-Taking Immunizations Vaccine Route Administration Date Status Comme nts Influenza Unknown 06/06/2025 Administered Social History Tobacco Use: Social History Observation Description Date Details (start date - stop date) Never Smoker NA - NA Alcohol Screen Question Answer Notes Did you have a drink containing alcohol in the p ast year? No Points 0 Interpretation Negative Tobacco use other than smoking: Question Answer Notes Are you an other tobacco user? No Tobacco Control (Standard) Question Answer Notes Tobacco use: Nonsmoker Additional Findings: Tobacco non-user Current no nsmoker AUDIT-C (Standard) Question Answer Notes Did you have a drink contain ing alcohol in the past year? Yes How often did you have a dri nk containing alcohol in the past year? Monthly or less (1 point) How many drinks did you have on a typical day when you were drinking in the past year? 1 or 2 drinks (0 point) How often did you have six o r more drinks on one occasion in the past year? Declined to specify (0 point) Points 1 Interpretation Negative Problems Problem Type SNOMED Code ICD Code Onset Dates Problem Status W/U Status Risk Notes Problem Bilateral atherosclerosis of arteries of lower limbs (disorder) ([id number] ) Atherosclerosis of [place] artery of both lower extremities, with unspecified presence of clinical manifestation (I70.203) Active confirmed Q7(A), Q8(2B), Q9(1B,2 C) Vital Signs Blood pressure diastolic 75 mm Hg 06/27/2025 Height 5ft5in in 06/27/2025 Blood pressure systolic 123 mm Hg 06/27/2025 Weight 155 lbs 06/27/2025 BMI 25.79 kg/m2 06/27/2025 Encounters Encounter Location Date Provider Diagnosis [address] [address] 06/27/2025 Stacie Gracia Atherosclerosis of [place] artery of both lower extremities, with unspecified presence of clinical manifestation I70.203 ; Neuropathy G62.9 ; Tinea unguium B35.1 ; Pain in right toe(s) M79.674 ; Pain in left toe(s) M79.675 ; Tinea pedis of both feet B35.3 ; Other hammer toe(s) (acquired), right foot M20.41 and Other hammer toe(s) (acquired), [facility] [address] 06/27/2025 Stacie Gracia Assessments Encounter Date Diagnosis (ICD Code) Assessment Notes Treatment Notes Treatment Clinical Notes Section Notes 06/27/2025 Neuropathy (ICD-10 - G62.9) 06/27/2025 Atherosclerosis of [place] artery of both lower extremities, with unspecified presence of clinical manifestation (ICD-10 - I70.203) Q7(A), Q8(2B), Q9(1B,2C) 06/27/2025 Tinea unguium (ICD-10 - B35.1) 06/27/2025 Pain in right toe(s) (ICD-10 - M79.674) 06/27/2025 Pain in left toe(s) (ICD-10 - M79.675) 06/27/2025 Tinea pedis of both feet (ICD-10 - B35.3) Patient Educated with: ATHELETE .pdf (ATHELETE .pdf) 06/27/2025 Other hammer toe(s) (acquired), right foot (ICD-10 - M20.41) 06/27/2025 Other hammer toe(s) (acquired), left foot (ICD-10 - M20.42) Plan Of Treatment Pending Test Test Name Order Date X ray : Foot, left 3V 11/17/2017 X ray : Foot, right 3V 11/17/2017 Next Appt Details Provider Name:Stacie gibson, 09/28/2025 09:00:00 AM, [address] [place], [address], Insurance Providers Payer Name Payer Address Payer Phone Subscriber Number Group Number Insured Name Patient Relationship to Insured Coverage Start Date Coverage End Date Medicare National Govt Svcs Inc [address] [place] [address] [id number] Deanna Noel Self - patient is the insured 7 [employer] [facility] [address] [place] [address] [id number] Deanna Noel Self - patient is the insured Medical (General) History Medical History History ICD Code Anxiety Back,Hip,and Knee pain Cholesterol Cancer Depression Diverticulosis Hepatitis B Lung disease Neuropathy Osteoporosis, hip Reflux ( GERD) Measles Mumps Chicken pox Polymyalgia rheumatica Eosinophilic fasciitis Hiatal hernia Scleroderma Surgical History Surgery Date(Month/Year) partial hysterectomy (2) 02/1995, breast biopsy, wire localization 1979 tonsillectomy Lung biopsy, complication of pneumothora x 09/2014, 10/2014 Pneumothorax
--- OUTSIDE RECORDS SUMMARY | 2025-07-10 09:09 | XMS_ITS ---
Author Name [facility] Organization Unknown Care Team Organization Name Specialty Phone Email Start Date End Da te [facility] Termed, PROVIDER Primary Care 07/14/202204/06
--- OUTSIDE RECORDS SUMMARY | 2025-07-10 09:09 | XMS_ITS | Clinical Summary ---
Author Organization [address] Address [address] [place] [id number] Care Team Providers Care Toll Bridge Attendant Name Role Phone Sania Hyatt MD Primary Care Provider [phone] Allergies Active Allergy Reactions Criticality Noted Date Comments Morphine Hives High 10/29/2014 Other reaction(s): Hives/Urticaria Medications b complex vitamins capsule Take 1 capsule by mouth daily Active buPROPion (WELLBUTRIN XL) 150 MG 24 hr tablet Take 150 mg by mouth Every morning @0700 Active CALCIUM-MAGNESIU M-ZINC ORAL Take by mouth Acti ve clonazePAM (KLONOPIN) 1 MG tablet Take 1 mg by mouth 3 (three) times daily Active omeprazole (PRILOSEC) 20 MG capsule Take 20 mg by mouth daily Active sertraline (ZOLOFT) 100 MG tablet Take 100 mg by mouth daily Active simvastatin (ZOCOR) 20 MG tablet Take 20 mg by mouth nightly Active acetaminophen (TYLENOL ARTHRITIS PAIN ORAL) Take 650 mg by mouth daily Active cholecalciferol (VITAMIN D) 1,000 unit tablet Take 3,000 Units by mouth daily Active ergocalciferol (VITAMIN D2) 50,000 unit capsuleIndicatio ns:Vitamin D deficiency Take 1 capsule (50,000 Units total) by mouth once a week For 8 weeks. 8 capsule 8 Active CO-TRIMOXAZOLE (SULFAMETHOXAZOL E/TRIMETHOPRIM) 800-160 mg per tabletIndication s:High risk medication use,On prednisone therapy Take 1 tablet by mouth three times a week. With food. 12 tablet 3 9 Active alendronate (FOSAMAX) 70 MG tabletIndication s:Osteopenia, unspecified location Take 1 tablet (70 mg total) by mouth every 7 days. 4 tablet 5 9 Active gabapentin (NEURONTIN) 100 MG capsule Take 4 capsules (400 mg total) by mouth daily. 180 capsule 1 9 Active mycophenolate sodium (MYFORTIC) 360 MG TbEC tablet, delayed-releaseI ndications:Eosin ophilic fasciitis Take 3 tablets (1,080 mg total) by mouth 2 (two) times daily. 540 tablet 1 9 Active Active Problems Problem Noted Date Diagnosed Date Pain 11/15/2018 Diarrhea, unspecified type 11/15/2018 Eosinophilic fasciitis 08/23/2018 Non-small cell lung cancer (NSCLC) (HC Code) Long-term use of high-risk medication 08/23/2018 Social History Tobacco Use Types Packs/Day Years Used Date Smoking Tobacco: Former Cigarettes Q uit: 10/18/2007 Smokeless Tobacco: Never Tobacco Cessation:Counseling Given: No Comments Unknown Sex and Gender Information Value Date Recorded Sex Assigned at Female 10/17/2018 10:59 PM EST Legal Sex Female 12:32 PM EST Gender Identity Female 10/17/2018 10:59 PM EST Sexual Orientation Straight 10/17/2018 10 :59 PM EST Last Filed Vital Signs Vital Sign Reading Time Taken Comments Blood Pressure 117/64 06/13/2019 11:43 AM EDT Pulse 81 06/13/2019 11:43 AM EDT Temperature 36.8 C (98.2 F) 06/13/2019 11:43 AM EDT Respiratory Rate 18 06/13/2019 11:43 AM EDT Oxygen Saturation 99% 06/13/2019 11:43 AM EDT Inhaled Oxygen Concentration - - Weight 73.5 kg (162 lb) 06/13/2019 11:43 AM EDT Height 165.1 cm (5' 5 ) 06/13/2019 11:43 AM EDT Body Mass Index 26.96 06/13/2019 11:43 AM EDT Plan of Treatment Health Maintenance Due Date Last Done Comments HIV screening 1964 Hepatitis C screening 1969 Colon cancer screening, Colonoscopy 1996 Breast cancer screening 04/22/2020 04/22/2018 Diabetes screening 05/30/2022 05/30/2019, 0 02/13/2019, 10/21/2018, Additional history exists Tetanus adult (Td q 10,TDAP once) 10/17/2022 10/17/2012 Lipid disorder screening 02/14/2024 02/13/2019 Influenza vaccine 04/06/2025 05/24/2022, , 06/02/2019, Additional history exists Covid-19 vaccine series ( season) 2025 05/24/2022, 11/07/2021, 04/19/2021, Additional history exists RSV Immunization (1 - 1-dose 75+ series) 2026 Osteoporosis screening (bone density) Completed 06/02/2019 Shingles vaccine (Shingrix) Completed 10/26/2019, 1 10/10/2018 Pneumococcal Vaccine (50+ years) Completed 11/19/2021, 01/07/2017, 09/29/2014 Cervical cancer screening Discontinued Meningococcal B Vaccine Aged Out No l onger eligible based on patient's age to complete this topic Meningococcal Vaccine Aged Out No mercedes priya eligible based on patient's age to complete this topic Procedures Procedure Name Priority Date/Time Associated Diagnosis Comments COMPREHENSIVE METABOLIC PANEL Routine 05/30/2019 9:48 AM EDT Long-term use of high-risk medication Eosinophilic fasciitis LIPID PANEL Routine 02/13/2019 9:07 AM EDT Eosinophilic fasciitis Long-term use of high-risk medication MAMMOGRAPHY RESULT SCAN Routine 04/22/2018 from Last 3 Months or Most Recently Relevant to Health Maintenance Results * (ABNORMAL) Comprehensive Metabolic Panel (05/30/2019 9:48 AM EDT) [facility] Glucose 84 65 - 99 mg/dL [facility] Comment: Fasting reference interval BUN 17 7 - 25 mg/dL [facility] Creatinine 0.83 0.50 - 0.99 mg/dL [facility] Comment: For patients >49 years of age, the reference limit for Creatinine is approximately 13% higher for people identified as -Citizen Of [place]. eGFR (NON -Citizen Of [place]) 73 > OR = 60 mL/min/1 .73m2 [facility] eGFR (Afr Amer) 85 > OR = 60 mL/min/1 .73m2 [facility] BUN/Creatinine Ratio NOT APPLICABLE 6 - 22 (calc) [facility] Sodium 142 135 - 146 mmol/L [facility] Potassium 4.2 3.5 - 5.3 mmol/L [facility] Chloride 105 98 - 110 mmol/L [facility] CO2 28 20 - 32 mmol/L [facility] Calcium 9.4 8.6 - 10.4 mg/dL [facility] Protein, Total 5.9(L) 6.1 - 8.1 g/dL [facility] Albumin 4.4 3.6 - 5.1 g/dL [facility] Globulin 1.5(L) 1.9 - 3.7 g/dL (calc) [facility] Albumin/Globulin Ratio 2.9(H) 1.0 - 2.5 (calc) [facility] Bilirubin, Total 0.7 0.2 - 1.2 mg/dL [facility] Alkaline Phosphatase 40 33 - 130 U/L [facility] AST 15 10 - 35 U/L [facility] ALT 18 6 - 29 U/L [facility] Blood 05/30/2019 9:48 AM EDT 05/30/2019 9:48 AM EDT Tammy Villalba APRN LAB BLOOD ORDERABLES Final Result Performing Organization Address City/State/[facility] Co de Phone Number [facility] [address] [place] [address] * (ABNORMAL) Lipid panel (02/13/2019 9:07 AM EDT) [facility] Cholesterol, Total 168 <200 mg/dL [facility] HDL 62 >50 mg/dL [facility] Triglycerides 199(H) <150 mg/dL [facility] LDL Cholesterol 76 mg/dL (calc) [facility] Comment: Reference range: <100 Desirable range <100 mg/dL for primary prevention; <70 mg/dL for patients with CHD or diabetic patients with > or = 2 CHD risk factors. LDL-C is now calculated using the Loan calculation, which is a validated novel method providing better accuracy than the Friedewald equation in the estimation of LDL-C. Aman JORGE et al. YENNY. 2013;310(19): 4012-1813 (http://education.Managed Objects.Medisas/faq/GSY740) Chol/HDL Ratio 2.7 <5.0 (calc) [facility] Non-HDL Cholesterol 106 <130 mg/dL (calc) [facility] Comment: For patients with diabetes plus 1 major ASCVD risk factor, treating to a non-HDL-C goal of <100 mg/dL (LDL-C of <70 mg/dL) is considered a therapeutic option. Blood 02/13/2019 9:07 AM EDT 02/13/2019 9:08 AM EDT Narrative [facility] - 02/14/2019 10:40 AM EDT FASTING:YES FASTING: YES Tammy Villalba APRN LAB BLOOD ORDERABLES Final Result Performing Organization Address City/State/[facility] Co de Phone Number [facility] [address] [place] [address] * Mammography Result Scan (04/22/2018) Provider External IMG SCAN REPORTS Final Result from Last 3 Months or Most Recently Relevant to Health Maintenance Insurance MEDICARE [facility] MEDICARE [facility] MEDICARE [facility] Care Teams Toll Bridge Attendant Relationship Specialty Start Date End Date Sania Hyatt MD PCP - General Internal Medicine 08/15/18
--- OUTSIDE RECORDS SUMMARY | 2025-07-10 09:09 | XMS_ITS | Encounter Summary ---
Author Organization [facility] Address [address] [place] [address] Care Team Providers Care Cable Installer Name Role Phone Sania Hyatt MD Primary Care Provider [phone] Encounter Details Date Type Department Care Team (Late st Contact Info) Description 04/05/2019 Scanned Document Medical Dermatology at [address] [facility] [address] [facility] [address] [place] [address] External, Provider Social History Tobacco Use Types [...] on filedocumented in this encounter Care Teams Cable Installer Relationship Specialty Start Date End Date Sania Hyatt MD PCP - General Internal Medicine 08/15/18 documented as of this encounter
--- OUTSIDE RECORDS SUMMARY | 2025-07-10 09:09 | XMS_ITS | Encounter Summary ---
Author Organization [facility] and [facility] Address [address] [place] [id number] Care Team Providers Care Dry Cell Battery Assembler Name Role Phone Sania Hyatt MD Primary Care Provider [phone] Encounter Details Date Type Department Care Team (Late st Contact Info) Description 05/03/2019 Scanned Document [facility] at [address] [place] [id number] Cary Sotelo MD [address] [place] [phone] Social History Tobacco Use Types Packs/Day Years [...] on filedocumented in this encounter Care Teams Dry Cell Battery Assembler Relationship Specialty Start Date End Date Sania Hyatt MD PCP - General Internal Medicine 08/15/18 documented as of this encounter
--- OUTSIDE RECORDS SUMMARY | 2025-07-10 09:09 | XMS_ITS | Encounter Summary ---
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 Name Role Phone Sania Hyatt MD Primary Care Provider [phone] Reason for Referral * Non-Referral (Routine) - Closed Specialty Diagnoses / Procedures Referred By Conterik garcia Referred To Contact Procedures EMG Scan External, Provider Referral ID Status Reason Start Date Expiration Date Visits Re quested Visits Authorized [id number] Closed 08/16/2018 08/16/2019 1 1 Encounter Details Date Type Department Care Team (Late st Contact Info) Description 08/16/2018 Scanned Document [facility] [address] [place] [phone] Sania Hyatt MD [address] [place] [address] Social History Tobacco Use Types Packs/Day Years [...] on filedocumented in this encounter Care Teams Metal Pickling Equipment Operator Relationship Specialty Start Date End Date Sania Hyatt MD PCP - General Internal Medicine 08/15/18 documented as of this encounter
--- OUTSIDE RECORDS SUMMARY | 2025-07-10 09:09 | XMS_ITS | Clinical Summary ---
Author Organization [facility] Address [address] [place] [phone] Phone Care Team Providers Care Ward Attendant Name Role Phone Sania Hyatt MD Primary Care Provid er Self-Referred, Patient Unavailable Unavailab le Immunizations Immunization Administration Dates Next Due COVID-19 (Pre-06/28) Pfizer Vaccine, mRNA, PF 04/19/2021,11/26/2020,11/05/2020 Social History Tobacco Use Types Packs/Day Years Used Date Smoking Tobacco: Never Assessed Education Answer Date Recorded Are you interested in more education? Not on josé miguel e 01/01/2023 Are you concerned about learning? Not on file 01/01/2023 No 01/01/2023 No 01/01/2023 Digital Access Answer Date Recorded No 01/30/2023 No 01/30/2023 No 01/30/2023 Reliable internet access at home? Not on file 01/30/2023 Device with a working camera? Not on file Comments Unknown Sex and Gender Information Value Date Recorded Sex Assigned at Not on file Legal Sex Female 2:59 PM EDT Gender Identity Not on file Sexual Orientation Not on file Plan of Treatment Health Maintenance Due Date Last Done Comments LIPID PANEL 1951 DEPRESSION SCREENING 1963 SMOKING Hx and SMOKELESS TOBACCO SCREENING 1964 HEPATITIS C SCREENING 1969 MAMMOGRAM 1991 COLOGUARD 1996 COLONOSCOPY 1996 COLORECTAL CANCER SCREENING 1996 FIT TEST 1996 FOBT 1996 SIGMOIDOSCOPY 1996 VIRTUAL COLONOSCOPY 1996 OSTEOPOROSIS SCREENING INITIAL (ONE-TIME) 2016 PNEUMOCOCCAL VACCINES (50+ years) (3 of 3 - PCV20 or PCV21) 01/07/2022 01/07/2017, 09/29/2014 Adult Td,Tdap Booster 10/17/2022 10/17/2012, 009 INFLUENZA VACCINE (#1) 2025 , 06/02/2019, 06/13/2018, Additional history exists COVID-19 VACCINE ( season) 2025 04/19/2021, 11/26/2020, 11/05/2020 RSV VACCINE (1 - 1-dose 75+ series) 2026 ZOSTER VACCINES Completed 11/01/2019, 12/2018, 07/11/2019, Additional history exists HEPATITIS A VACCINES Aged Out No long er eligible based on patient's age to complete this topic HIB VACCINES Aged Out No longer eligi ble based on patient's age to complete this topic MENINGOCOCCAL VACCINES (ACWY) Aged Out No longer eligible based on patient's age to complete this topic MENINGOCOCCAL VACCINES (B) Aged Out N o longer eligible based on patient's age to complete this topic Medical Devices Not on file Insurance MEDICARE PART A & B [facility] MEDEX SUPPLEMENT [place] A [place] [id number] [facility] MEDEX SUPPLEMENT MEDICARE PART A & B [employer] MEDEX SUPPLEMENT MEDICARE PART A & B [employer] MEDEX SUPPLEMENT MEDICARE PART A & B [employer] MEDEX SUPPLEMENT MEDICARE PART A & B [employer] MEDEX SUPPLEMENT MEDICARE PART A & B [employer] MEDEX SUPPLEMENT MEDICARE PART A & B [employer] MEDEX SUPPLEMENT MEDICARE PART A & B [employer] MEDEX SUPPLEMENT Care Teams Ward Attendant Relationship Specialty Start Date End Date Sania Hyatt MD [address] [id number] PCP - General Internal Medicine 04/29/18 Self-Referred, Patient Referring Physician 04/29/18 Additional Source Comments The information contained in this document represents components of the legal health record. It is not the complete legal health record.[facility]
== END 2025-07-10 09:38 | disposition home or self-care (01) ==
LOC: HO.RHES 08:42
PROVIDERS: PCP Pediatrics; Visit Provider Student in an Organized Health Care Education/Training Program
DX: M35.4 Diffuse (eosinophilic) fasciitis (principal); D72.18 Eosinophilia in diseases classified elsewhere; G62.9 Polyneuropathy, unspecified
CPT/HCPCS: 99214; G2211

== ENCOUNTER → 2025-07-10 08:42 | Outpatient (BNVA) | payer MEDICARE, SELFPAY | PROVIDERS: PCP Pediatrics; Visit Provider Student in an Organized Health Care Education/Training Program | DX: M35.4 Diffuse (eosinophilic) fasciitis (principal); D72.18 Eosinophilia in diseases classified elsewhere; G62.9 Polyneuropathy, unspecified | CPT/HCPCS: 99212 ==